=== PATIENT | male | born 1945 | race Caucasian/White ===

== ENCOUNTER 2018-09-22 22:26 | Inpatient (IN) | payer MEDICARE ==
[2018-09-22] MEDS ORDERED: Sodium Chloride 0.9% 10 ML Syringe FLUSH PRN (22:44)
--- NOTE | 2018-09-22 22:59 | EDM.PDOC ---
ED HPI GENERAL MEDICAL PROBLEM - General Chief Complaint: General Stated Complaint: ILLNESS Time Seen by Provider: 09/22/18 22:40 Source of Information: Reports: Patient, EMS, Old Records History Limitations: Reports: No Limitations - History of Present Illness INITIAL COMMENTS - FREE TEXT/NARRATIVE: 73 yo male injured his L elbow with a universal grinder tool 3 days ago. He was seen in the clinic today and was placed on cephalexin for a wound infection. Since noon today he has been running a low grade fever and has per family been a little confused at times. He has a hx of CVA and initially tonight they were thinking he had had another stroke so sent him into the ER via EMS. Claims he did not miss any of his medications today. 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) denies Pain Score (Numeric/FACES): 0 - Related Data Allergies Allergy/AdvReac Type Severity Reaction Status Date / Time No Known Allergies Allergy Verified 09/22/18 22:51 Home Meds: Home Meds Cephalexin [Keflex] 500 mg PO TID 09/22/18 [History] Losartan [Cozaar] 100 mg PO DAILY 09/22/18 [History] Tamsulosin HCl [Flomax] 0.4 mg PO DAILY 09/22/18 [History] ED ROS GENERAL - Review of Systems Review Of Systems: See Below Constitutional: Reports: Fever, Chills, Malaise, Weakness HEENT: Reports: No Symptoms Respiratory: Reports: No Symptoms Cardiovascular: Reports: No Symptoms Endocrine: Reports: No Symptoms GI/Abdominal: Reports: No Symptoms : Reports: No Symptoms Musculoskeletal: Reports: Arm Pain (R forearm and hand) Skin: Reports: Erythema (R hand and forearm.), Wound (deep abrasion of R hand) Neurological: Reports: Confusion (mild at times) Psychiatric: Reports: No Symptoms ED EXAM, GENERAL - Physical Exam Exam: See Below Exam Limited By: No Limitations General Appearance: Alert, WD/WN, No Apparent Distress Eye Exam: Bilateral Eye: Normal Inspection Ears: Normal External Exam, Normal Canal, Hearing Loss Ear Exam: Bilateral Ear: Auricle Normal, Canal Normal Nose: Normal Inspection, No Blood Throat/Mouth: Normal Inspection, Normal Lips, Normal Oropharynx, Normal Voice, No Airway Compromise Head: Atraumatic, Normocephalic Neck: Normal Inspection, Non-Tender Respiratory/Chest: No Respiratory Distress, Lungs Clear, Normal Breath Sounds, No Accessory Muscle Use Cardiovascular: Regular Rate, Rhythm, No Edema GI/Abdominal: Normal Bowel Sounds, Soft, Non-Tender, No Distention Back Exam: Normal Inspection. No: CVA Tenderness (R), CVA Tenderness (L) Extremities: Pedal Edema (R forearm and hand puffy), Limited Range of Motion (R wrist and hand with reduced ROM. ), Increased Warmth (R hand and forearm), Redness (R hand and forearm.) Neurological: Alert, Oriented, CN II-XII Intact, Normal Cognition, No Motor/ Sensory Deficits Psychiatric: Normal Affect, Normal Mood Skin Exam: Warm, Dry, No Rash, Erythema (R hand and forearm. ), Increased Warmth (R hand and forearm. ), Wound/Incision (deep abrasion dorsum of R hand.) Course - Vital Signs Text/Narrative:: Dr. Daniel called @ 2336h, Dr. Barbour called @ 2340h Last Recorded V/S: Last Vital Signs Temp 38.8 C H 09/22/18 22:28 Pulse 89 09/22/18 23:11 Resp 24 H 09/22/18 23:11 BP 186/124 H 09/22/18 23:30 Pulse Ox 96 09/22/18 22:28 - Orders/Labs/Meds Orders: Active Orders 24 hr Category Date Time Status Dietary Supplements [RC] BIDMEALS Care 09/22/18 23:12 Active CULTURE BLOOD [BC] Stat Lab 09/22/18 22:50 Received CULTURE BLOOD [BC] Stat Lab 09/22/18 22:55 Received Clindamycin Phosphate [Cleocin] 900 mg Med 09/22/18 23:12 Active Sodium Chloride 0.9% [Normal Saline] 100 ml IV ONETIME Sodium Chloride 0.9% [Normal Saline] 1,000 ml Med 09/22/18 23:13 Active IV .BOLUS Sodium Chloride 0.9% [Saline Flush] Med 09/22/18 22:44 Active 10 ml FLUSH ASDIRECTED PRN cefTRIAXone [Rocephin] 2 gm Med 09/22/18 23:11 Active Sodium Chloride 0.9% [Normal Saline] 50 ml IV ONETIME Saline Lock Insert [OM.PC] Routine Oth 09/22/18 22:44 Ordered Medication Orders Ceftriaxone Sodium 2 gm/ (Sodium Chloride) 50 mls @ 100 mls/hr IV ONETIME ONE Stop: 09/22/18 23:40 Last Admin: 09/22/18 23:33 Dose: 100 mls/hr Clindamycin Phosphate 900 mg/ (Sodium Chloride) 106 mls @ 200 mls/hr IV ONETIME ONE Stop: 09/22/18 23:43 Sodium Chloride (Normal Saline) 1,000 mls @ 1,000 mls/hr IV .BOLUS ONE Stop: 09/23/18 00:12 Last Admin: 09/22/18 23:31 Dose: 1,000 mls/hr Sodium Chloride (Saline Flush) 10 ml FLUSH ASDIRECTED PRN PRN Reason: Keep Vein Open Labs: Laboratory Tests 09/22/18 09/22/18 09/22/18 Range/Units 22:43 22:50 23:14 WBC 19.3 H (4.5-11.0) K/uL RBC 5.25 (4.30-5.90) M/uL Hgb 14.8 (12.0-15.0) g/dL Hct 44.1 (40.0-54.0) % MCV 84 (80-98) fL MCH 28 (27-31) pg MCHC 34 (32-36) % Plt Count 226 (150-400) K/uL Sodium 138 L (140-148) mmol/L Potassium 3.7 (3.6-5.2) mmol/L Chloride 102 (100-108) mmol/L Carbon Dioxide 26 (21-32) mmol/L Anion Gap 13.7 (5.0-14.0) mmol/L BUN 20 H (7-18) mg/dL Creatinine 1.5 H (0.8-1.3) mg/dL Est Cr Clr Drug Dosing 51.05 mL/min Estimated GFR (MDRD) 46 L (>60) Glucose 106 (74-106) mg/dL Calcium 9.0 (8.5-10.1) mg/dL C-Reactive Protein 3.24 H (0.0-0.3) mg/dL Urine Color Yellow Urine Appearance Clear Urine pH 7.0 (4.5-8.0) Ur Specific [place] 1.010 (1.008-1.030) Urine Protein 100 H (NEGATIVE) mg/dL Urine Glucose (UA) Normal (NEGATIVE) mg/dL Urine Ketones Negative (NEGATIVE) mg/dL Urine Occult Blood Moderate (NEGATIVE) Urine Nitrite Negative (NEGAITVE) Urine Bilirubin Negative (NEGATIVE) Urine Urobilinogen Normal (NORMAL) mg/dL Ur Leukocyte Esterase Negative (NEGATIVE) Urine RBC 5-10 H (0-5) Urine WBC 0-5 (0-5) Ur Epithelial Cells Rare Amorphous Sediment Not seen Urine Bacteria Not seen Urine Mucus Not seen Meds: Medications Generic Name Dose Route Start Last Admin Trade Name Freq PRN Reason Stop Dose Admin Ceftriaxone Sodium 2 gm/ 50 mls @ 100 mls/hr 09/22/18 23:11 09/22/18 23:33 Sodium Chloride IV 09/22/18 23:40 100 mls/hr ONETIME ONE Administration Clindamycin Phosphate 900 mg/ 106 mls @ 200 mls/hr 09/22/18 23:12 Sodium Chloride IV 09/22/18 23:43 ONETIME ONE Sodium Chloride 1,000 mls @ 1,000 mls/hr 09/22/18 23:13 09/22/18 23:31 Normal Saline IV 09/23/18 00:12 1,000 mls/hr .BOLUS ONE Administration Sodium Chloride 10 ml 09/22/18 22:44 Saline Flush FLUSH ASDIRECTED PRN Keep Vein Open Discontinued Medications Generic Name Dose Route Start Last Admin Trade Name Freq PRN Reason Stop Dose Admin Clonidine HCl 0.1 mg 09/22/18 23:11 09/22/18 23:30 Catapres PO 09/22/18 23:12 0.1 mg ONETIME ONE Administration Departure - Departure Time of Disposition: 00:00 Disposition: Admitted As Inpatient 68 Condition: Fair Clinical Impression: Cellulitis of forearm, right, HTN, goal below 140/80 Hand abrasion, infected Qualifiers: Encounter type: initial encounter Laterality: right Qualified Code(s): S60.511A - Abrasion of right hand, initial encounter; L08.9 - Local infection of the skin and subcutaneous tissue, unspecified - Discharge Information *PRESCRIPTION DRUG MONITORING PROGRAM REVIEWED*: Not Applicable *COPY OF PRESCRIPTION DRUG MONITORING REPORT IN PATIENT FARHAN: Not Applicable Referrals: Brandan Mata NP [Primary Care Provider] - Forms: ED Department Discharge - My Orders Last 24 Hours: My Active Orders 09/22/18 22:44 Sodium Chloride 0.9% [Saline Flush] 10 ml FLUSH ASDIRECTED PRN Saline Lock Insert [OM.PC] Routine 09/22/18 22:50 CULTURE BLOOD [BC] Stat 09/22/18 22:55 CULTURE BLOOD [BC] Stat 09/22/18 23:11 cefTRIAXone [Rocephin] 2 gm Sodium Chloride 0.9% [Normal Saline] 50 ml IV ONETIME 09/22/18 23:12 Dietary Supplements [RC] BIDMEALS Clindamycin Phosphate [Cleocin] 900 mg Sodium Chloride 0.9% [Normal Saline] 100 ml IV ONETIME 09/22/18 23:13 Sodium Chloride 0.9% [Normal Saline] 1,000 ml IV .BOLUS - Assessment/Plan Last 24 Hours: My Active Orders 09/22/18 22:44 Sodium Chloride 0.9% [Saline Flush] 10 ml FLUSH ASDIRECTED PRN Saline Lock Insert [OM.PC] Routine 09/22/18 22:50 CULTURE BLOOD [BC] Stat 09/22/18 22:55 CULTURE BLOOD [BC] Stat 09/22/18 23:11 cefTRIAXone [Rocephin] 2 gm Sodium Chloride 0.9% [Normal Saline] 50 ml IV ONETIME 09/22/18 23:12 Dietary Supplements [RC] BIDMEALS Clindamycin Phosphate [Cleocin] 900 mg Sodium Chloride 0.9% [Normal Saline] 100 ml IV ONETIME 09/22/18 23:13 Sodium Chloride 0.9% [Normal Saline] 1,000 ml IV .BOLUS
[2018-09-22] MEDS ORDERED: cloNIDine 0.1 MG Tab PO ONE (23:11)
[2018-09-22] MEDS ORDERED: cefTRIAXone 2 GM in Sodium Chloride 0.9% 50 ML IV ONE (23:11)
[2018-09-22] MEDS ORDERED: Clindamycin Phosphate 900 MG in Sodium Chloride 0.9% 100 ML IV ONE (23:12)
[2018-09-22] MEDS ORDERED: Sodium Chloride 0.9% 1,000 ML IV ONE (23:13)
[2018-09-22] MEDS ORDERED: Acetaminophen 500 MG Tab PO ONE (23:58)
[2018-09-23] MEDS ORDERED: Acetaminophen/oxyCODONE 325-5 MG Tab PO PRN (00:19)
[2018-09-23] MEDS ORDERED: Ondansetron 4 MG Tab.DIS PO PRN (00:19)
--- NOTE | 2018-09-23 00:19 | PCM.HP ---
H&P History of Present Illness - General Date of Service: 09/23/18 Source of Information: Patient, EMS History Limitations: Reports: Altered Mental Status - History of Present Illness Initial Comments - Free Text/Narative: 73-year-old male with past medical history of CVA, CKD, hypertension on losartan medication came to the ED with a complaining of redness of anterior surface of the right upper extremity. Patient evaluated in the clinic and diagnosed with cellulitis and started him on cephalexin medication in the morning. Patient came to the ED with a complaining of altered mental status associated with pain at the cellulitis area. Patient reports that he had injury with jewel bearing grinder blade 4 days prior to the ER visit. Patient has intermittent fever maximum fever maximum was 102 at home. The patient blood pressure medication increased from losartan 50g to 100 mg today. Patient denies any chest pain, exertional chest pain, breathing difficulty, headaches, dizziness, lightheadedness, disturbance in bowel and bladder habits. Patient is a full code In the ED patient received 1 dose of clindamycin and received 1 L of IV fluids. Patient WBC count increased from 12-19 with lactic acid levels are 1.1. Patient blood pressures are elevated. Other review of systems are not significant denies Pain Score (Numeric/FACES): 0 - Related Data Allergies/Adverse Reactions: Allergies Allergy/AdvReac Type Severity Reaction Status Date / Time No Known Allergies Allergy Verified 09/22/18 22:51 Home Medications: Home Meds Cephalexin [Keflex] 500 mg PO TID 09/22/18 [History] Losartan [Cozaar] 100 mg PO DAILY 09/22/18 [History] Tamsulosin HCl [Flomax] 0.4 mg PO DAILY 09/22/18 [History] Past Medical History Cardiovascular History: Reports: Hypertension Genitourinary History: Reports: Renal Disease Neurological History: Reports: CVA - Infectious Disease History Infectious Disease History: Reports: Chicken Pox, Measles, Mumps, Other (See Below) Other Infectious Disease History: polio Social & Family History - Family History Family Medical History: Noncontributory - Tobacco Use Smoking Status *Q: Never Smoker Second Hand Smoke Exposure: No - Caffeine Use Caffeine Use: Reports: Coffee, Tea - Alcohol Use Days Per Week of Alcohol Use: 0 - Recreational Drug Use Recreational Drug Use: No H&P Review of Systems - Review of Systems: Review Of Systems: See Below General: Reports: Fever, Chills, Malaise, Weakness, Fatigue, Night Sweats, Decreased Appetite. Denies: Weight Loss, Weight Gain Pulmonary: Denies: Shortness of Breath, Wheezing, Pleuritic Chest Pain, Cough, Sputum, Hemoptysis Cardiovascular: Denies: Chest Pain, Palpitations, Dyspnea on Exertion, Orthopnea , PND, Edema, Lightheadedness Gastrointestinal: Reports: Nausea. Denies: Abdominal Pain, Decreased Appetite, Vomiting Genitourinary: Denies: Dysuria, Frequency, Burning, Pain, Urgency Musculoskeletal: Denies: Neck Pain, Shoulder Pain, Arm Pain Skin: Denies: Cyanosis, Jaundice Psychiatric: Reports: Confusion, Agitation. Denies: Depression, Mood Lability, Anxiety, Hallucinations, Suicidal Ideation Neurological: Reports: Confusion. Denies: Dizziness, Headache, Numbness, Paresthesia Hematologic/Lymphatic: Denies: Anemia, Easy Bleeding Exam - Exam Exam: See Below - Vital Signs Vital Signs: Last Vital Signs Temp 38.4 C H 09/23/18 00:11 Pulse 73 09/23/18 00:11 Resp 16 09/23/18 00:11 BP 177/108 H 09/23/18 00:11 Pulse Ox 94 L 09/23/18 00:11 Weight: 91.626 kg - Exam General: Alert, Oriented, Mild Distress Neck: Supple, Trachea Midline Lungs: Clear to Auscultation, Normal Respiratory Effort Cardiovascular: Regular Rate, Regular Rhythm, Normal S1, Normal S2 GI/Abdominal Exam: Normal Bowel Sounds, Soft, Non-Tender, No Organomegaly Back Exam: Normal Inspection, Full Range of Motion Extremities: Leg Pain, Increased Warmth, Redness (at ant surface of right upper extremity) Skin: Warm, Dry, Intact, Rash, Wound Neuro Extensive - Mental Status: Alert. No: Oriented x3 - Patient Data Lab Results Last 24 hrs: Laboratory Results - last 24 hr 09/22/18 09/22/18 09/22/18 Range/Units 22:43 22:50 23:14 WBC 19.3 H (4.5-11.0) K/uL RBC 5.25 (4.30-5.90) M/uL Hgb 14.8 (12.0-15.0) g/dL Hct 44.1 (40.0-54.0) % MCV 84 (80-98) fL MCH 28 (27-31) pg MCHC 34 (32-36) % Plt Count 226 (150-400) K/uL Sodium 138 L (140-148) mmol/L Potassium 3.7 (3.6-5.2) mmol/L Chloride 102 (100-108) mmol/L Carbon Dioxide 26 (21-32) mmol/L Anion Gap 13.7 (5.0-14.0) mmol/L BUN 20 H (7-18) mg/dL Creatinine 1.5 H (0.8-1.3) mg/dL Est Cr Clr Drug Dosing 51.05 mL/min Estimated GFR (MDRD) 46 L (>60) Glucose 106 (74-106) mg/dL Calcium 9.0 (8.5-10.1) mg/dL C-Reactive Protein 3.24 H (0.0-0.3) mg/dL Urine Color Yellow Urine Appearance Clear Urine pH 7.0 (4.5-8.0) Ur Specific [place] 1.010 (1.008-1.030) Urine Protein 100 H (NEGATIVE) mg/dL Urine Glucose (UA) Normal (NEGATIVE) mg/dL Urine Ketones Negative (NEGATIVE) mg/dL Urine Occult Blood Moderate (NEGATIVE) Urine Nitrite Negative (NEGAITVE) Urine Bilirubin Negative (NEGATIVE) Urine Urobilinogen Normal (NORMAL) mg/dL Ur Leukocyte Esterase Negative (NEGATIVE) Urine RBC 5-10 H (0-5) Urine WBC 0-5 (0-5) Ur Epithelial Cells Rare Amorphous Sediment Not seen Urine Bacteria Not seen Urine Mucus Not seen Result Diagrams: 09/25/18 06:00 09/25/18 06:01 - Problem List (1) CVA (cerebral vascular accident) SNOMED Code(s): 243018080 ICD Code: I63.9 - CEREBRAL INFARCTION, UNSPECIFIED Status: Acute Current Visit: Yes (2) CKD (chronic kidney disease) stage 3, GFR 30-59 ml/min SNOMED Code(s): 958375264 ICD Code: N18.3 - CHRONIC KIDNEY DISEASE, STAGE 3 (MODERATE) Status: Acute Current Visit: Yes (3) Cellulitis of forearm, right SNOMED Code(s): 90247715 ICD Code: L03.113 - CELLULITIS OF RIGHT UPPER LIMB Status: Acute Current Visit: Yes (4) HTN, goal below 140/80 SNOMED Code(s): 59375581 ICD Code: I10 - ESSENTIAL (PRIMARY) HYPERTENSION Status: Acute Current Visit: Yes (5) Hand abrasion, infected SNOMED Code(s): 891095442 ICD Code: S60.519A - ABRASION OF UNSPECIFIED HAND, INITIAL ENCOUNTER; L08.9 - LOCAL INFECTION OF THE SKIN AND SUBCUTANEOUS TISSUE, UNSP Status: Acute Current Visit: Yes Qualifiers: Encounter type: initial encounter Laterality: right Qualified Code(s): S60.511A - Abrasion of right hand, initial encounter; L08.9 - Local infection of the skin and subcutaneous tissue, unspecified Problem List Initiated/Reviewed/Updated: Yes Orders Last 24hrs: Active Orders 24 hr Category Date Time Status Dietary Supplements [RC] BIDMEALS Care 09/22/18 23:12 Active CULTURE BLOOD [BC] Stat Lab 09/22/18 22:50 Received CULTURE BLOOD [BC] Stat Lab 09/22/18 22:55 Received Sodium Chloride 0.9% [Saline Flush] Med 09/22/18 22:44 Active 10 ml FLUSH ASDIRECTED PRN Saline Lock Insert [OM.PC] Routine Oth 09/22/18 22:44 Ordered Medication Orders Sodium Chloride (Saline Flush) 10 ml FLUSH ASDIRECTED PRN PRN Reason: Keep Vein Open Assessment/Plan Comment:: 73-year-old male with past medical history of CVA, CKD hypertension came to the ED with a complaining of redness of his anterior surface of the right upper extremity and diagnosed with cellulitis and admitted to the hospital in observation status Patient WBC count increased from 12-19 We will start him on broad-spectrum antibiotics vancomycin, Zosyn Patient creatinine levels are 1.5 Patient has previous history of CKD stage III We will give another 1 L of bolus We will start him on maintenance IV fluids 150 mL/h CK levels are elevated, will follow the trend CBC, CMP tomorrow We will follow blood culture reports and change antibiotics accordingly We will continue losartan 100 mg daily for hypertension DVT prophylaxis heparin 5000 international units every 8 hourly IV fluids 150 mL/h CODE STATUS full code Diet low-salt diet Riddle catheter not indicated Observation status
[2018-09-23] MEDS ORDERED: Sodium Chloride 0.9% 1,000 ML IV ONE (00:23)
[2018-09-23] MEDS ORDERED: Heparin Sodium 5,000 Units/ML Vial SUBCUT SCH (00:30)
[2018-09-23] MEDS ORDERED: Sodium Chloride 0.9% 1,000 ML IV SCH ×2 (00:30→10:45)
[2018-09-23] MEDS: Piperacillin/Tazobactam 3.375 GM in Sodium Chloride 0.9% 50 ML IV SCH ×2 (02:01→06:24)
[2018-09-23] MEDS: Acetaminophen 325 MG Tab PO PRN (07:21)
[2018-09-23] MEDS: Heparin Sodium 5,000 Units/ML Vial SUBCUT SCH ×2 (09:17→18:29)
--- NOTE | 2018-09-23 10:45 | PCM.PN ---
- General Info Date of Service: 09/23/18 Subjective Update: there were no acute events overnight following admission. No significant pain in the right arm. He thinks the redness and swelling is about the same as last night. The redness has not extended beyond the area that is outlined on the hand or arm. Low-grade fevers overnight. Confusion seems to have resolved. Blood pressure moderately elevated this morning. Functional Status: Reports: Pain Controlled, Tolerating Diet - Review of Systems General: Reports: Fever - Patient Data Vitals - Most Recent: Last Vital Signs Temp 37.2 C 09/23/18 07:22 Pulse 63 09/23/18 07:22 Resp 16 09/23/18 07:22 BP 169/88 H 09/23/18 07:22 Pulse Ox 95 09/23/18 07:22 Weight - Most Recent: 89.176 kg I&O - Last 24 Hours: Intake & Output 09/22/18 09/23/18 09/23/18 22:59 06:59 14:59 Intake Total 1351 Output Total 300 Balance 1051 Lab Results Last 24 Hours: Laboratory Results - last 24 hr 09/22/18 09/22/18 09/22/18 Range/Units 22:43 22:50 23:14 WBC 19.3 H (4.5-11.0) K/uL RBC 5.25 (4.30-5.90) M/uL Hgb 14.8 (12.0-15.0) g/dL Hct 44.1 (40.0-54.0) % MCV 84 (80-98) fL MCH 28 (27-31) pg MCHC 34 (32-36) % Plt Count 226 (150-400) K/uL Neut % (Auto) (36-66) % Lymph % (Auto) (24-44) % [place] % (Auto) (2-6) % Eos % (Auto) (2-4) % Baso % (Auto) (0-1) % Sodium 138 L (140-148) mmol/L Potassium 3.7 (3.6-5.2) mmol/L Chloride 102 (100-108) mmol/L Carbon Dioxide 26 (21-32) mmol/L Anion Gap 13.7 (5.0-14.0) mmol/L BUN 20 H (7-18) mg/dL Creatinine 1.5 H (0.8-1.3) mg/dL Est Cr Clr Drug Dosing 51.05 mL/min Estimated GFR (MDRD) 46 L (>60) Glucose 106 (74-106) mg/dL Lactic Acid (0.4-2.0) mmol/L Calcium 9.0 (8.5-10.1) mg/dL Creatine Kinase (39-308) U/L C-Reactive Protein 3.24 H (0.0-0.3) mg/dL Urine Color Yellow Urine Appearance Clear Urine pH 7.0 (4.5-8.0) Ur Specific [place] 1.010 (1.008-1.030) Urine Protein 100 H (NEGATIVE) mg/dL Urine Glucose (UA) Normal (NEGATIVE) mg/dL Urine Ketones Negative (NEGATIVE) mg/dL Urine Occult Blood Moderate (NEGATIVE) Urine Nitrite Negative (NEGAITVE) Urine Bilirubin Negative (NEGATIVE) Urine Urobilinogen Normal (NORMAL) mg/dL Ur Leukocyte Esterase Negative (NEGATIVE) Urine RBC 5-10 H (0-5) Urine WBC 0-5 (0-5) Ur Epithelial Cells Rare Amorphous Sediment Not seen Urine Bacteria Not seen Urine Mucus Not seen 09/23/18 09/23/18 09/23/18 Range/Units 00:25 00:44 05:29 WBC 18.9 H (4.5-11.0) K/uL RBC 4.50 (4.30-5.90) M/uL Hgb 13.1 (12.0-15.0) g/dL Hct 38.4 L (40.0-54.0) % MCV 85 (80-98) fL MCH 29 (27-31) pg MCHC 34 (32-36) % Plt Count 201 (150-400) K/uL Neut % (Auto) 82 H (36-66) % Lymph % (Auto) 8 L (24-44) % [place] % (Auto) 11 H (2-6) % Eos % (Auto) 0 L (2-4) % Baso % (Auto) 0 (0-1) % Sodium (140-148) mmol/L Potassium (3.6-5.2) mmol/L Chloride (100-108) mmol/L Carbon Dioxide (21-32) mmol/L Anion Gap (5.0-14.0) mmol/L BUN (7-18) mg/dL Creatinine (0.8-1.3) mg/dL Est Cr Clr Drug Dosing mL/min Estimated GFR (MDRD) (>60) Glucose (74-106) mg/dL Lactic Acid 1.0 (0.4-2.0) mmol/L Calcium (8.5-10.1) mg/dL Creatine Kinase 375 H (39-308) U/L C-Reactive Protein (0.0-0.3) mg/dL Urine Color Urine Appearance Urine pH (4.5-8.0) Ur Specific [place] (1.008-1.030) Urine Protein (NEGATIVE) mg/dL Urine Glucose (UA) (NEGATIVE) mg/dL Urine Ketones (NEGATIVE) mg/dL Urine Occult Blood (NEGATIVE) Urine Nitrite (NEGAITVE) Urine Bilirubin (NEGATIVE) Urine Urobilinogen (NORMAL) mg/dL Ur Leukocyte Esterase (NEGATIVE) Urine RBC (0-5) Urine WBC (0-5) Ur Epithelial Cells Amorphous Sediment Urine Bacteria Urine Mucus 09/23/18 Range/Units 05:29 WBC (4.5-11.0) K/uL RBC (4.30-5.90) M/uL Hgb (12.0-15.0) g/dL Hct (40.0-54.0) % MCV (80-98) fL MCH (27-31) pg MCHC (32-36) % Plt Count (150-400) K/uL Neut % (Auto) (36-66) % Lymph % (Auto) (24-44) % [place] % (Auto) (2-6) % Eos % (Auto) (2-4) % Baso % (Auto) (0-1) % Sodium 139 L (140-148) mmol/L Potassium 3.6 (3.6-5.2) mmol/L Chloride 106 (100-108) mmol/L Carbon Dioxide 24 (21-32) mmol/L Anion Gap 12.6 (5.0-14.0) mmol/L BUN 18 (7-18) mg/dL Creatinine 1.4 H (0.8-1.3) mg/dL Est Cr Clr Drug Dosing 56.27 mL/min Estimated GFR (MDRD) 50 L (>60) Glucose 113 H (74-106) mg/dL Lactic Acid (0.4-2.0) mmol/L Calcium 8.1 L (8.5-10.1) mg/dL Creatine Kinase (39-308) U/L C-Reactive Protein (0.0-0.3) mg/dL Urine Color Urine Appearance Urine pH (4.5-8.0) Ur Specific [place] (1.008-1.030) Urine Protein (NEGATIVE) mg/dL Urine Glucose (UA) (NEGATIVE) mg/dL Urine Ketones (NEGATIVE) mg/dL Urine Occult Blood (NEGATIVE) Urine Nitrite (NEGAITVE) Urine Bilirubin (NEGATIVE) Urine Urobilinogen (NORMAL) mg/dL Ur Leukocyte Esterase (NEGATIVE) Urine RBC (0-5) Urine WBC (0-5) Ur Epithelial Cells Amorphous Sediment Urine Bacteria Urine Mucus Med Orders - Current: Current Medications Acetaminophen (Tylenol) 650 mg PO Q4H PRN PRN Reason: Pain (Mild 1-3)/fever Last Admin: 09/23/18 07:21 Dose: 650 mg Heparin Sodium (Porcine) (Heparin Sodium) 5,000 units SUBCUT Q8H [facility] Last Admin: 09/23/18 09:17 Dose: 5,000 units Piperacillin/Tazobactam/ (Dextrose 3.375 gm/ Premix) 50 mls @ 100 mls/hr IV Q6H [facility] Vancomycin HCl 1.5 gm/ Sodium (Chloride) 250 mls @ 166.667 mls/hr IV Q12H [facility] Sodium Chloride (Normal Saline) 1,000 mls @ 50 mls/hr IV ASDIRECTED [facility] Losartan Potassium (Cozaar) 100 mg PO DAILY [facility] Ondansetron HCl (Zofran Odt) 4 mg PO Q6H PRN PRN Reason: Nausea able to take PO Oxycodone/Acetaminophen (Percocet 325-5 Mg) 1 tab PO Q4H PRN PRN Reason: Pain (moderate 4-6) Potassium Chloride (Klor-Con M20) 40 meq PO ONETIME ONE Stop: 09/23/18 10:37 Senna/Docusate Sodium (Senna Plus) 1 tab PO BID PRN PRN Reason: Constipation Sodium Chloride (Saline Flush) 10 ml FLUSH ASDIRECTED PRN PRN Reason: Keep Vein Open Tamsulosin HCl (Flomax) 0.4 mg PO DAILY [facility] Discontinued Medications Acetaminophen (Tylenol Extra Strength) 1,000 mg PO ONETIME ONE Stop: 09/22/18 23:59 Last Admin: 09/23/18 00:08 Dose: 1,000 mg Clonidine HCl (Catapres) 0.1 mg PO ONETIME ONE Stop: 09/22/18 23:12 Last Admin: 09/22/18 23:30 Dose: 0.1 mg Heparin Sodium (Porcine) (Heparin Sodium) 5,000 units SUBCUT Q8H [facility] Last Admin: 09/23/18 02:00 Dose: 5,000 units Ceftriaxone Sodium 2 gm/ (Sodium Chloride) 50 mls @ 100 mls/hr IV ONETIME ONE Stop: 09/22/18 23:40 Last Admin: 09/22/18 23:33 Dose: 100 mls/hr Clindamycin Phosphate 900 mg/ (Sodium Chloride) 106 mls @ 200 mls/hr IV ONETIME ONE Stop: 09/22/18 23:43 Last Admin: 09/23/18 00:16 Dose: 200 mls/hr Sodium Chloride (Normal Saline) 1,000 mls @ 1,000 mls/hr IV .BOLUS ONE Stop: 09/23/18 00:12 Last Admin: 09/22/18 23:31 Dose: 1,000 mls/hr Sodium Chloride (Normal Saline) 1,000 mls @ 999 mls/hr IV .BOLUS ONE Stop: 09/23/18 01:23 Last Admin: 09/23/18 00:34 Dose: 999 mls/hr Piperacillin Sod/Tazobactam (Sod 3.375 gm/ Sodium Chloride) 50 mls @ 100 mls/ hr IV Q6H [facility] Last Admin: 09/23/18 06:24 Dose: 100 mls/hr Sodium Chloride (Normal Saline) 1,000 mls @ 150 mls/hr IV ASDIRECTED [facility] Last Admin: 09/23/18 02:04 Dose: 150 mls/hr Vancomycin HCl 1 gm/ Sodium (Chloride) 250 mls @ 150 mls/hr IV Q12H [facility] Vancomycin HCl 1.5 gm/ Sodium (Chloride) 250 mls @ 150 mls/hr IV Q12H [facility] Vancomycin HCl 1.5 gm/ Sodium (Chloride) 250 mls @ 166.667 mls/hr IV Q12H [facility] Vancomycin HCl 1.5 gm/ Sodium (Chloride) 250 mls @ 166.667 mls/hr IV Q24H [facility] Last Admin: 09/23/18 03:00 Dose: 166.667 mls/hr - Exam Quality Assessment: No: Supplemental Oxygen General: Alert, Oriented, Cooperative, No Acute Distress Lungs: Normal Respiratory Effort GI/Abdominal Exam: Soft, No Distention Extremities: Other (right forearm with redness and swelling over the dorsum of the hand as well as some redness on the distal forearm. Redness is contained within the marked area. Over the ulnar styloid there is a 0.5 x 2 cm laceration with no active bleeding. No purulence. No abscess.) Psy/Mental Status: Alert, Normal Affect - Problem List & Annotations (1) Cellulitis of forearm, right SNOMED Code(s): 88384483 Code(s): L03.113 - CELLULITIS OF RIGHT UPPER LIMB Status: Acute Current Visit: Yes (2) HTN, goal below 140/80 SNOMED Code(s): 83742111 Code(s): I10 - ESSENTIAL (PRIMARY) HYPERTENSION Status: Acute Current Visit: Yes - Problem List Review Problem List Initiated/Reviewed/Updated: Yes - My Orders Last 24 Hours: My Active Orders 09/23/18 10:15 Losartan [Cozaar] 100 mg PO DAILY Tamsulosin [Flomax] 0.4 mg PO DAILY 09/23/18 10:36 Potassium Chloride [Klor-Con M20] 40 meq PO ONETIME ONE 09/23/18 10:38 Discontinue Telemetry Monitoring [Cardiac Monitoring Discontinue] [RC] Click to Edit Up With Assistance [RC] ASDIRECTED 09/23/18 10:45 Sodium Chloride 0.9% [Normal Saline] 1,000 ml IV ASDIRECTED 09/24/18 05:00 BASIC METABOLIC PANEL,BMP [CHEM] Timed CBC W/O DIFF,HEMOGRAM [HEME] Timed (1) - Plan Plan:: ASSESSMENT AND PLAN - cellulitis of the right forearm and hand - no evidence for abscess based on examination today. Low-grade fevers overnight. White blood cell count stable. No significant pain. Cultures pending. Tolerating current antibiotics. no evidence for sepsis. -Cont vancomycin and Pip/Tazo -Pain control if needed -Follow-up cultures -Daily dressing change Essential hypertension - moderate elevation of blood pressure but he has not had his home medication as of yet. 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 Maintenance issues - - DVT prophylaxis - mechanical - GI prophylaxis - not indicated - Nutrition - regular - Riddle catheter - not indicated Disposition - I would anticipate discharge home after the hospital stay. Skyler Daniel M.D.
[2018-09-23] MEDS ORDERED: Potassium Chloride 20 MEQ Tab.ER PO ONE (11:00)
[2018-09-23] MEDS: Losartan 50 MG Tab PO SCH (11:06)
[2018-09-23] MEDS: Tamsulosin 0.4 MG Cap.ER PO SCH (11:07)
[2018-09-23] MEDS: Piperacillin/Tazobactam/Dext 3.375 GM in Premix Bag 1 BAG IV SCH ×3 (12:06→23:54)
[2018-09-24] MEDS: Heparin Sodium 5,000 Units/ML Vial SUBCUT SCH ×3 (02:43→17:44)
[2018-09-24] MEDS: Piperacillin/Tazobactam/Dext 3.375 GM in Premix Bag 1 BAG IV SCH ×2 (05:23→10:59)
[2018-09-24] MEDS: Losartan 50 MG Tab PO SCH (08:54)
[2018-09-24] MEDS: Tamsulosin 0.4 MG Cap.ER PO SCH (08:55)
[2018-09-24] MEDS ORDERED: Potassium Chloride 20 MEQ Tab.ER PO ONE (10:00)
--- NOTE | 2018-09-24 12:40 | PCM.PN ---
- General Info Date of Service: 09/24/18 Subjective Update: There were no acute events overnight. Confusion has resolved. No fevers overnight. He does not have any pain in the arm but also notes he does not have much sensation in that right arm. Still has some mild serosanguineous type drainage from the injury. In some aspects the arm looks better but the injury itself looks a little more swollen and erythematous today. He does have a blood culture which is growing gram-positive cocci with identification still pending. Functional Status: Reports: Pain Controlled, Tolerating Diet - Review of Systems General: Reports: Fever Musculoskeletal: Reports: Arm Pain - Patient Data Vitals - Most Recent: Last Vital Signs Temp 36.5 C 09/24/18 11:12 Pulse 89 09/24/18 11:12 Resp 18 09/24/18 11:12 BP 160/95 H 09/24/18 11:12 Pulse Ox 97 09/24/18 11:12 Weight - Most Recent: 88.451 kg I&O - Last 24 Hours: Intake & Output 09/23/18 09/24/18 09/24/18 22:59 06:59 14:59 Intake Total 680 350 Output Total 350 Balance 680 350 -350 Lab Results Last 24 Hours: Laboratory Results - last 24 hr 09/24/18 09/24/18 Range/Units 05:38 05:38 WBC 15.1 H (4.5-11.0) K/uL RBC 4.71 (4.30-5.90) M/uL Hgb 13.4 (12.0-15.0) g/dL Hct 40.2 (40.0-54.0) % MCV 85 (80-98) fL MCH 29 (27-31) pg MCHC 33 (32-36) % Plt Count 215 (150-400) K/uL Sodium 138 L (140-148) mmol/L Potassium 3.5 L (3.6-5.2) mmol/L Chloride 105 (100-108) mmol/L Carbon Dioxide 24 (21-32) mmol/L Anion Gap 12.5 (5.0-14.0) mmol/L BUN 17 (7-18) mg/dL Creatinine 1.5 H (0.8-1.3) mg/dL Est Cr Clr Drug Dosing 52.52 mL/min Estimated GFR (MDRD) 46 L (>60) Glucose 93 (74-106) mg/dL Calcium 8.5 (8.5-10.1) mg/dL Kirt Results Last 24 Hours: Microbiology 09/22/18 22:50 Aerobic Blood Culture - Preliminary Blood - Arm, Left NO GROWTH AFTER 1 DAY Anaerobic Blood Culture - Preliminary 09/22/18 22:55 Aerobic Blood Culture - Preliminary Blood - Venous NO GROWTH AFTER 1 DAY Anaerobic Blood Culture - Preliminary NO GROWTH AFTER 1 DAY Med Orders - Current: Current Medications Acetaminophen (Tylenol) 650 mg PO Q4H PRN PRN Reason: Pain (Mild 1-3)/fever Last Admin: 09/23/18 07:21 Dose: 650 mg Heparin Sodium (Porcine) (Heparin Sodium) 5,000 units SUBCUT Q8H [facility] Last Admin: 09/24/18 08:59 Dose: 5,000 units Vancomycin HCl 1.5 gm/ Sodium (Chloride) 250 mls @ 166.667 mls/hr IV Q12H [facility] Last Admin: 09/24/18 02:46 Dose: 166.667 mls/hr Clindamycin Phosphate 600 mg/ (Sodium Chloride) 54 mls @ 100 mls/hr IV Q8H [facility] Sodium Chloride (Normal Saline) 1,000 mls @ 25 mls/hr IV ASDIRECTED [facility] Losartan Potassium (Cozaar) 100 mg PO DAILY [facility] Last Admin: 09/24/18 08:54 Dose: 100 mg Ondansetron HCl (Zofran Odt) 4 mg PO Q6H PRN PRN Reason: Nausea able to take PO Oxycodone/Acetaminophen (Percocet 325-5 Mg) 1 tab PO Q4H PRN PRN Reason: Pain (moderate 4-6) Senna/Docusate Sodium (Senna Plus) 1 tab PO BID PRN PRN Reason: Constipation Sodium Chloride (Saline Flush) 10 ml FLUSH ASDIRECTED PRN PRN Reason: Keep Vein Open Tamsulosin HCl (Flomax) 0.4 mg PO DAILY [facility] Last Admin: 09/24/18 08:55 Dose: 0.4 mg Discontinued Medications Acetaminophen (Tylenol Extra Strength) 1,000 mg PO ONETIME ONE Stop: 09/22/18 23:59 Last Admin: 09/23/18 00:08 Dose: 1,000 mg Clonidine HCl (Catapres) 0.1 mg PO ONETIME ONE Stop: 09/22/18 23:12 Last Admin: 09/22/18 23:30 Dose: 0.1 mg Heparin Sodium (Porcine) (Heparin Sodium) 5,000 units SUBCUT Q8H [facility] Last Admin: 09/23/18 02:00 Dose: 5,000 units Ceftriaxone Sodium 2 gm/ (Sodium Chloride) 50 mls @ 100 mls/hr IV ONETIME ONE Stop: 09/22/18 23:40 Last Admin: 09/22/18 23:33 Dose: 100 mls/hr Clindamycin Phosphate 900 mg/ (Sodium Chloride) 106 mls @ 200 mls/hr IV ONETIME ONE Stop: 09/22/18 23:43 Last Admin: 09/23/18 00:16 Dose: 200 mls/hr Sodium Chloride (Normal Saline) 1,000 mls @ 1,000 mls/hr IV .BOLUS ONE Stop: 09/23/18 00:12 Last Admin: 09/22/18 23:31 Dose: 1,000 mls/hr Sodium Chloride (Normal Saline) 1,000 mls @ 999 mls/hr IV .BOLUS ONE Stop: 09/23/18 01:23 Last Admin: 09/23/18 00:34 Dose: 999 mls/hr Piperacillin Sod/Tazobactam (Sod 3.375 gm/ Sodium Chloride) 50 mls @ 100 mls/ hr IV Q6H [facility] Last Admin: 09/23/18 06:24 Dose: 100 mls/hr Sodium Chloride (Normal Saline) 1,000 mls @ 150 mls/hr IV ASDIRECTED [facility] Last Admin: 09/23/18 02:04 Dose: 150 mls/hr Vancomycin HCl 1 gm/ Sodium (Chloride) 250 mls @ 150 mls/hr IV Q12H [facility] Vancomycin HCl 1.5 gm/ Sodium (Chloride) 250 mls @ 150 mls/hr IV Q12H [facility] Vancomycin HCl 1.5 gm/ Sodium (Chloride) 250 mls @ 166.667 mls/hr IV Q12H [facility] Vancomycin HCl 1.5 gm/ Sodium (Chloride) 250 mls @ 166.667 mls/hr IV Q24H [facility] Last Admin: 09/23/18 03:00 Dose: 166.667 mls/hr Piperacillin/Tazobactam/ (Dextrose 3.375 gm/ Premix) 50 mls @ 100 mls/hr IV Q6H [facility] Last Admin: 09/24/18 10:59 Dose: 100 mls/hr Sodium Chloride (Normal Saline) 1,000 mls @ 50 mls/hr IV ASDIRECTED [facility] Last Admin: 09/23/18 11:08 Dose: 50 mls/hr Potassium Chloride (Klor-Con M20) 40 meq PO ONETIME ONE Stop: 09/23/18 11:01 Last Admin: 09/23/18 11:07 Dose: 40 meq Potassium Chloride (Klor-Con M20) 40 meq PO ONETIME ONE Stop: 09/24/18 10:01 Last Admin: 09/24/18 10:02 Dose: 40 meq - Exam Quality Assessment: No: Supplemental Oxygen General: Alert, Oriented, Cooperative, No Acute Distress Lungs: Normal Respiratory Effort GI/Abdominal Exam: Soft, No Distention Extremities: Other (0.5x3 cm laceration right dorsal forearm with mild SS drainage. There is surrounding erythema and induration but no fluctuance. The area of erythema over the dorsum of the hand has improved. He does have some increase in the erythema and warmth on the palmar side of the forearm compared to yesterday.) - Problem List & Annotations (1) Cellulitis of forearm, right SNOMED Code(s): 00279070 Code(s): L03.113 - CELLULITIS OF RIGHT UPPER LIMB Status: Acute Current Visit: Yes (2) HTN, goal below 140/80 SNOMED Code(s): 42945129 Code(s): I10 - ESSENTIAL (PRIMARY) HYPERTENSION Status: Acute Current Visit: Yes - Problem List Review Problem List Initiated/Reviewed/Updated: Yes - My Orders Last 24 Hours: My Active Orders 09/24/18 12:45 Clindamycin Phosphate [Cleocin] 600 mg Sodium Chloride 0.9% [Normal Saline] 50 ml IV Q8H Sodium Chloride 0.9% [Normal Saline] 1,000 ml IV ASDIRECTED 09/25/18 05:00 BASIC METABOLIC PANEL,BMP [CHEM] Timed CBC W/O DIFF,HEMOGRAM [HEME] Timed (1) - Plan Plan:: ASSESSMENT AND PLAN - Cellulitis of the right forearm and hand - no evidence for abscess based on examination again today. White blood cell count is trending down. Temperature curve improving. Confusion has resolved. Blood culture growing gram-positive cocci -Cont vancomycin -Stop Pip/Tazo -Start clindamycin -Follow-up cultures -Pain control if needed -Follow-up cultures -Daily dressing change Essential hypertension - moderate elevation of blood pressure so far today. 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 Maintenance issues - - DVT prophylaxis - mechanical - GI prophylaxis - not indicated - Nutrition - regular - Riddle catheter - not indicated Disposition - I would anticipate discharge home after the hospital stay. Skyler Daniel M.D.
[2018-09-24] MEDS: Sodium Chloride 0.9% 1,000 ML IV SCH (13:25)
[2018-09-25] MEDS: Heparin Sodium 5,000 Units/ML Vial SUBCUT SCH ×3 (02:49→17:56)
[2018-09-25] MEDS: Tamsulosin 0.4 MG Cap.ER PO SCH (08:09)
[2018-09-25] MEDS: Losartan 50 MG Tab PO SCH (08:09)
--- NOTE | 2018-09-25 13:43 | PCM.PN ---
- General Info Date of Service: 09/25/18 Subjective Update: Mr. De La Vega is been stable since yesterday, there has been further improvement in the area of cellulitis involving the hand and wrist on the right. Open wound with surrounding erythema and fluctuance to palpation. Functional Status: Reports: Tolerating Diet, Urinating - Review of Systems General: Denies: Fever, Chills Pulmonary: Reports: No Symptoms Cardiovascular: Reports: No Symptoms Gastrointestinal: Reports: No Symptoms Musculoskeletal: Reports: Other (Inflammation right wrist and hand) - Patient Data Vitals - Most Recent: Last Vital Signs Temp 97.1 F 09/25/18 10:39 Pulse 73 09/25/18 10:39 Resp 18 09/25/18 10:39 BP 156/102 H 09/25/18 10:39 Pulse Ox 95 09/25/18 10:39 Weight - Most Recent: 195 lb 0.017 oz I&O - Last 24 Hours: Intake & Output 09/24/18 09/25/18 09/25/18 22:59 06:59 14:59 Intake Total 884 600 340 Output Total 275 950 650 Balance 609 -350 -310 Lab Results Last 24 Hours: Laboratory Results - last 24 hr 09/25/18 09/25/18 Range/Units 06:00 06:01 WBC 12.0 H (4.5-11.0) K/uL RBC 4.83 (4.30-5.90) M/uL Hgb 13.9 (12.0-15.0) g/dL Hct 40.9 (40.0-54.0) % MCV 85 (80-98) fL MCH 29 (27-31) pg MCHC 34 (32-36) % Plt Count 244 (150-400) K/uL Sodium 139 L (140-148) mmol/L Potassium 3.7 (3.6-5.2) mmol/L Chloride 105 (100-108) mmol/L Carbon Dioxide 26 (21-32) mmol/L Anion Gap 11.7 (5.0-14.0) mmol/L BUN 16 (7-18) mg/dL Creatinine 1.3 (0.8-1.3) mg/dL Est Cr Clr Drug Dosing 60.60 mL/min Estimated GFR (MDRD) 54 L (>60) Glucose 86 (74-106) mg/dL Calcium 8.7 (8.5-10.1) mg/dL Kirt Results Last 24 Hours: Microbiology 09/22/18 22:50 Aerobic Blood Culture - Preliminary Blood - Arm, Left NO GROWTH AFTER 2 DAYS Anaerobic Blood Culture - Preliminary 09/22/18 22:55 Aerobic Blood Culture - Preliminary Blood - Venous NO GROWTH AFTER 2 DAYS Anaerobic Blood Culture - Preliminary NO GROWTH AFTER 2 DAYS Med Orders - Current: Current Medications Acetaminophen (Tylenol) 650 mg PO Q4H PRN PRN Reason: Pain (Mild 1-3)/fever Last Admin: 09/23/18 07:21 Dose: 650 mg Heparin Sodium (Porcine) (Heparin Sodium) 5,000 units SUBCUT Q8H [facility] Last Admin: 09/25/18 10:32 Dose: 5,000 units Vancomycin HCl 1.5 gm/ Sodium (Chloride) 250 mls @ 166.667 mls/hr IV Q12H [facility] Last Admin: 09/25/18 02:50 Dose: 166.667 mls/hr Clindamycin Phosphate 600 mg/ (Sodium Chloride) 54 mls @ 100 mls/hr IV Q8H [facility] Last Admin: 09/25/18 05:29 Dose: 100 mls/hr Sodium Chloride (Normal Saline) 1,000 mls @ 25 mls/hr IV ASDIRECTED [facility] Stop: 09/25/18 23:59 Last Admin: 09/24/18 13:25 Dose: 25 mls/hr Sodium Chloride (Normal Saline) 1,000 mls @ 100 mls/hr IV ASDIRECTED [facility] Losartan Potassium (Cozaar) 100 mg PO DAILY [facility] Last Admin: 09/25/18 08:09 Dose: 100 mg Ondansetron HCl (Zofran Odt) 4 mg PO Q6H PRN PRN Reason: Nausea able to take PO Oxycodone/Acetaminophen (Percocet 325-5 Mg) 1 tab PO Q4H PRN PRN Reason: Pain (moderate 4-6) Senna/Docusate Sodium (Senna Plus) 1 tab PO BID PRN PRN Reason: Constipation Sodium Chloride (Saline Flush) 10 ml FLUSH ASDIRECTED PRN PRN Reason: Keep Vein Open Tamsulosin HCl (Flomax) 0.4 mg PO DAILY [facility] Last Admin: 09/25/18 08:09 Dose: 0.4 mg Discontinued Medications Acetaminophen (Tylenol Extra Strength) 1,000 mg PO ONETIME ONE Stop: 09/22/18 23:59 Last Admin: 09/23/18 00:08 Dose: 1,000 mg Clonidine HCl (Catapres) 0.1 mg PO ONETIME ONE Stop: 09/22/18 23:12 Last Admin: 09/22/18 23:30 Dose: 0.1 mg Heparin Sodium (Porcine) (Heparin Sodium) 5,000 units SUBCUT Q8H [facility] Last Admin: 09/23/18 02:00 Dose: 5,000 units Ceftriaxone Sodium 2 gm/ (Sodium Chloride) 50 mls @ 100 mls/hr IV ONETIME ONE Stop: 09/22/18 23:40 Last Admin: 09/22/18 23:33 Dose: 100 mls/hr Clindamycin Phosphate 900 mg/ (Sodium Chloride) 106 mls @ 200 mls/hr IV ONETIME ONE Stop: 09/22/18 23:43 Last Admin: 09/23/18 00:16 Dose: 200 mls/hr Sodium Chloride (Normal Saline) 1,000 mls @ 1,000 mls/hr IV .BOLUS ONE Stop: 09/23/18 00:12 Last Admin: 09/22/18 23:31 Dose: 1,000 mls/hr Sodium Chloride (Normal Saline) 1,000 mls @ 999 mls/hr IV .BOLUS ONE Stop: 09/23/18 01:23 Last Admin: 09/23/18 00:34 Dose: 999 mls/hr Piperacillin Sod/Tazobactam (Sod 3.375 gm/ Sodium Chloride) 50 mls @ 100 mls/ hr IV Q6H [facility] Last Admin: 09/23/18 06:24 Dose: 100 mls/hr Sodium Chloride (Normal Saline) 1,000 mls @ 150 mls/hr IV ASDIRECTED [facility] Last Admin: 09/23/18 02:04 Dose: 150 mls/hr Vancomycin HCl 1 gm/ Sodium (Chloride) 250 mls @ 150 mls/hr IV Q12H [facility] Vancomycin HCl 1.5 gm/ Sodium (Chloride) 250 mls @ 150 mls/hr IV Q12H [facility] Vancomycin HCl 1.5 gm/ Sodium (Chloride) 250 mls @ 166.667 mls/hr IV Q12H [facility] Vancomycin HCl 1.5 gm/ Sodium (Chloride) 250 mls @ 166.667 mls/hr IV Q24H [facility] Last Admin: 09/23/18 03:00 Dose: 166.667 mls/hr Piperacillin/Tazobactam/ (Dextrose 3.375 gm/ Premix) 50 mls @ 100 mls/hr IV Q6H [facility] Last Admin: 09/24/18 10:59 Dose: 100 mls/hr Sodium Chloride (Normal Saline) 1,000 mls @ 50 mls/hr IV ASDIRECTED [facility] Last Admin: 09/23/18 11:08 Dose: 50 mls/hr Potassium Chloride (Klor-Con M20) 40 meq PO ONETIME ONE Stop: 09/23/18 11:01 Last Admin: 09/23/18 11:07 Dose: 40 meq Potassium Chloride (Klor-Con M20) 40 meq PO ONETIME ONE Stop: 09/24/18 10:01 Last Admin: 09/24/18 10:02 Dose: 40 meq - Exam General: Alert, Oriented, Cooperative, Mild Distress Lungs: Clear to Auscultation, Normal Respiratory Effort Cardiovascular: Regular Rate, Regular Rhythm, No Murmurs GI/Abdominal Exam: Soft, Non-Tender, No Organomegaly, No Distention Extremities: Increased Warmth, Redness - Problem List Review Problem List Initiated/Reviewed/Updated: Yes - My Orders Last 24 Hours: My Active Orders 09/25/18 13:33 Consult to Physician [CONS] Routine 09/25/18 13:34 Notify Provider Consults [RC] ASDIRECTED 09/26/18 00:01 Sodium Chloride 0.9% @ 100 MLS/HR(1000ml) Sodium Chloride 0.9% [Normal Saline] 1 ,000 ml IV ASDIRECTED 09/26/18 05:00 BASIC METABOLIC PANEL,BMP [CHEM] Timed CBC WITH AUTO DIFF [HEME] Timed - Plan Plan:: Assessment and plan Cellulitis right wrist and hand-persistent inflammation involving the area around open wound at the wrist, today noted to have fluctuance to palpation consistent with possible underlying abscess -Continue vancomycin, Zosyn -Consult Dr. Prater for surgical IND CKD stage III -IV normal saline 100 mL per hour when nothing by mouth after midnight Hypertension -Continue outpatient medications DVT prophylaxis heparin 5000 international units every 8 hourly IV fluids 150 mL/h CODE STATUS full code Diet low-salt diet Riddle catheter not indicated Observation status
[2018-09-26] MEDS: Sodium Chloride 0.9% 1,000 ML IV SCH ×3 (02:21→23:05)
[2018-09-26] MEDS: Heparin Sodium 5,000 Units/ML Vial SUBCUT SCH ×3 (02:23→17:22)
[2018-09-26] MEDS ORDERED: Bupivacaine 0.5% 50 ML MDV ONE (07:47)
[2018-09-26] MEDS ORDERED: Lidocaine 1% with EPINEPHrine 1:100,000 50 ML MDV ONE (07:47)
[2018-09-26] MEDS ORDERED: Dexamethasone 4 MG/ML SDV ONE (07:59)
[2018-09-26] MEDS ORDERED: Rocuronium 50 MG/5 ML Vial ONE (07:59)
[2018-09-26] MEDS ORDERED: fentaNYL 250 MCG/5 ML SDV ONE (07:59)
[2018-09-26] MEDS ORDERED: Neostigmine Methylsulfate 1 MG/ML 5 ML Syringe ONE (07:59)
[2018-09-26] MEDS ORDERED: Ondansetron 4 MG/2 ML SDV ONE (07:59)
[2018-09-26] MEDS ORDERED: Glycopyrrolate 0.2 MG/ML 5 ML MDV ONE (07:59)
[2018-09-26] MEDS ORDERED: Succinylcholine 200 MG/10 ML MDV ONE (07:59)
[2018-09-26] MEDS ORDERED: Propofol 200 MG/20 ML SDV ONE (07:59)
[2018-09-26] MEDS: Losartan 50 MG Tab PO SCH (08:49)
[2018-09-26] MEDS: Tamsulosin 0.4 MG Cap.ER PO SCH (08:50)
[2018-09-26] MEDS ORDERED: Sodium Chloride 0.9% 500 ML ONE (10:06)
[2018-09-26] MEDS ORDERED: Sodium Chloride 0.9% 0 ML ONE (10:06)
--- NOTE | 2018-09-26 10:47 | PN ---
DATE OF SERVICE: 09/26/2018 SUBJECTIVE: Jose Angel is n.p.o. He will be having incision and debridement of abscess above his right wrist. His consents have been signed and he is ready to go to surgery. REVIEW OF SYSTEMS: Pain is controlled. He has no other questions or concerns. OBJECTIVE: GENERAL: Jose Angel De La Vega is a 73-year-old male. VITAL SIGNS: TPR is 97.7, 62, 16, blood pressure 169/92. EXTREMITIES: Right forearm, above his wrist, is an abscess, less tender which he states than it was when he first was admitted to the hospital. HEART: Regular rate and rhythm. LUNGS: Clear. ABDOMEN: Soft, nontender. EXTREMITIES: Without peripheral edema. ASSESSMENT: Cellulitis, right forearm; hypertension; history of cerebrovascular accident; and chronic kidney disease. PLAN: Remain n.p.o. Scheduled for incision and debridement of right forearm abscess. N.p.o. orders to be written postoperatively. Brianna Wright PA-C /[id number]
[2018-09-26] MEDS: Acetaminophen 325 MG Tab PO PRN ×2 (11:41→16:25)
--- NOTE | 2018-09-26 17:54 | PCM.PN ---
- General Info Date of Service: 09/26/18 Subjective Update: Mr. De La Vega is status post debridement of abscess at the right wrist done earlier today by Dr. Prater. He has remained hemodynamically stable and afebrile. Reports current pain control adequate. Functional Status: Reports: Pain Controlled, Tolerating Diet, Ambulating, Urinating - Review of Systems General: Denies: Fever, Chills Pulmonary: Reports: No Symptoms Cardiovascular: Reports: No Symptoms Gastrointestinal: Reports: No Symptoms - Patient Data Vitals - Most Recent: Last Vital Signs Temp 97.5 F 09/26/18 17:00 Pulse 71 09/26/18 17:00 Resp 18 09/26/18 17:00 BP 139/91 H 09/26/18 17:00 Pulse Ox 95 09/26/18 17:00 Weight - Most Recent: 191 lb 9.6 oz I&O - Last 24 Hours: Intake & Output 09/26/18 09/26/18 09/26/18 06:59 14:59 22:59 Intake Total 1354 Output Total 900 800 Balance -900 554 Lab Results Last 24 Hours: Laboratory Results - last 24 hr 09/26/18 09/26/18 Range/Units 04:50 04:50 WBC 10.2 (4.5-11.0) K/uL RBC 4.95 (4.30-5.90) M/uL Hgb 14.2 (12.0-15.0) g/dL Hct 41.8 (40.0-54.0) % MCV 84 (80-98) fL MCH 29 (27-31) pg MCHC 34 (32-36) % Plt Count 285 (150-400) K/uL Neut % (Auto) 67 H (36-66) % Lymph % (Auto) 17 L (24-44) % Wilcox % (Auto) 11 H (2-6) % Eos % (Auto) 4 (2-4) % Baso % (Auto) 1 (0-1) % Sodium 139 L (140-148) mmol/L Potassium 3.8 (3.6-5.2) mmol/L Chloride 106 (100-108) mmol/L Carbon Dioxide 25 (21-32) mmol/L Anion Gap 11.8 (5.0-14.0) mmol/L BUN 17 (7-18) mg/dL Creatinine 1.3 (0.8-1.3) mg/dL Est Cr Clr Drug Dosing 60.62 mL/min Estimated GFR (MDRD) 54 L (>60) Glucose 92 (74-106) mg/dL Calcium 9.2 (8.5-10.1) mg/dL Kirt Results Last 24 Hours: Microbiology 09/26/18 10:27 Gram Stain - Final Hand, Right 09/22/18 22:50 Aerobic Blood Culture - Preliminary Blood - Arm, Left NO GROWTH AFTER 3 DAYS Anaerobic Blood Culture - Final Staphylococcus Aureus 09/22/18 22:55 Aerobic Blood Culture - Preliminary Blood - Venous NO GROWTH AFTER 3 DAYS Anaerobic Blood Culture - Preliminary NO GROWTH AFTER 3 DAYS Med Orders - Current: Current Medications Acetaminophen (Tylenol) 650 mg PO Q4H PRN PRN Reason: Pain (Mild 1-3)/fever Last Admin: 09/26/18 16:25 Dose: 650 mg Heparin Sodium (Porcine) (Heparin Sodium) 5,000 units SUBCUT Q8H [facility] Last Admin: 09/26/18 17:22 Dose: 5,000 units Clindamycin Phosphate 600 mg/ (Sodium Chloride) 54 mls @ 100 mls/hr IV Q8H [facility] Last Admin: 09/26/18 13:20 Dose: 100 mls/hr Vancomycin HCl 1.25 gm/ Sodium (Chloride) 250 mls @ 165 mls/hr IV Q12H [facility] Last Admin: 09/26/18 17:19 Dose: 165 mls/hr Losartan Potassium (Cozaar) 100 mg PO DAILY [facility] Last Admin: 09/26/18 08:49 Dose: 100 mg Ondansetron HCl (Zofran Odt) 4 mg PO Q6H PRN PRN Reason: Nausea able to take PO Oxycodone/Acetaminophen (Percocet 325-5 Mg) 1 tab PO Q4H PRN PRN Reason: Pain (moderate 4-6) Senna/Docusate Sodium (Senna Plus) 1 tab PO BID PRN PRN Reason: Constipation Sodium Chloride (Saline Flush) 10 ml FLUSH ASDIRECTED PRN PRN Reason: Keep Vein Open Tamsulosin HCl (Flomax) 0.4 mg PO DAILY [facility] Last Admin: 09/26/18 08:50 Dose: 0.4 mg Discontinued Medications Acetaminophen (Tylenol Extra Strength) 1,000 mg PO ONETIME ONE Stop: 09/22/18 23:59 Last Admin: 09/23/18 00:08 Dose: 1,000 mg Bupivacaine HCl (Marcaine 0.5%) Confirm Administered Dose 50 ml .ROUTE .STK-MED ONE Stop: 09/26/18 07:48 Clonidine HCl (Catapres) 0.1 mg PO ONETIME ONE Stop: 09/22/18 23:12 Last Admin: 09/22/18 23:30 Dose: 0.1 mg Dexamethasone (Dexamethasone) Confirm Administered Dose 4 mg .ROUTE .STK-MED ONE Stop: 09/26/18 08:00 Fentanyl (Sublimaze) Confirm Administered Dose 250 mcg .ROUTE .STK-MED ONE Stop: 09/26/18 08:00 Glycopyrrolate (Robinul) Confirm Administered Dose 1 mg .ROUTE .STK-MED ONE Stop: 09/26/18 08:00 Heparin Sodium (Porcine) (Heparin Sodium) 5,000 units SUBCUT Q8H [facility] Last Admin: 09/23/18 02:00 Dose: 5,000 units Ceftriaxone Sodium 2 gm/ (Sodium Chloride) 50 mls @ 100 mls/hr IV ONETIME ONE Stop: 09/22/18 23:40 Last Admin: 09/22/18 23:33 Dose: 100 mls/hr Clindamycin Phosphate 900 mg/ (Sodium Chloride) 106 mls @ 200 mls/hr IV ONETIME ONE Stop: 09/22/18 23:43 Last Admin: 09/23/18 00:16 Dose: 200 mls/hr Sodium Chloride (Normal Saline) 1,000 mls @ 1,000 mls/hr IV .BOLUS ONE Stop: 09/23/18 00:12 Last Admin: 09/22/18 23:31 Dose: 1,000 mls/hr Sodium Chloride (Normal Saline) 1,000 mls @ 999 mls/hr IV .BOLUS ONE Stop: 09/23/18 01:23 Last Admin: 09/23/18 00:34 Dose: 999 mls/hr Piperacillin Sod/Tazobactam (Sod 3.375 gm/ Sodium Chloride) 50 mls @ 100 mls/ hr IV Q6H [facility] Last Admin: 09/23/18 06:24 Dose: 100 mls/hr Sodium Chloride (Normal Saline) 1,000 mls @ 150 mls/hr IV ASDIRECTED [facility] Last Admin: 09/23/18 02:04 Dose: 150 mls/hr Vancomycin HCl 1 gm/ Sodium (Chloride) 250 mls @ 150 mls/hr IV Q12H [facility] Vancomycin HCl 1.5 gm/ Sodium (Chloride) 250 mls @ 150 mls/hr IV Q12H [facility] Vancomycin HCl 1.5 gm/ Sodium (Chloride) 250 mls @ 166.667 mls/hr IV Q12H [facility] Vancomycin HCl 1.5 gm/ Sodium (Chloride) 250 mls @ 166.667 mls/hr IV Q24H [facility] Last Admin: 09/23/18 03:00 Dose: 166.667 mls/hr Piperacillin/Tazobactam/ (Dextrose 3.375 gm/ Premix) 50 mls @ 100 mls/hr IV Q6H [facility] Last Admin: 09/24/18 10:59 Dose: 100 mls/hr Vancomycin HCl 1.5 gm/ Sodium (Chloride) 250 mls @ 166.667 mls/hr IV Q12H [facility] Last Admin: 09/25/18 02:50 Dose: 166.667 mls/hr Sodium Chloride (Normal Saline) 1,000 mls @ 50 mls/hr IV ASDIRECTED [facility] Last Admin: 09/23/18 11:08 Dose: 50 mls/hr Sodium Chloride (Normal Saline) 1,000 mls @ 25 mls/hr IV ASDIRECTED [facility] Stop: 09/25/18 23:59 Last Admin: 09/24/18 13:25 Dose: 25 mls/hr Sodium Chloride (Normal Saline) 1,000 mls @ 100 mls/hr IV ASDIRECTED [facility] Last Admin: 09/26/18 13:17 Dose: 100 mls/hr Linezolid (Zyvox) Confirm Administered Dose 300 mls @ as directed .ROUTE .STK- MED ONE Stop: 09/26/18 07:48 Sodium Chloride (Normal Saline) Confirm Administered Dose 250 mls @ as directed .ROUTE .STK-MED ONE Stop: 09/26/18 10:07 Sodium Chloride (Normal Saline) Confirm Administered Dose 500 mls @ as directed .ROUTE .STK-MED ONE Stop: 09/26/18 10:07 Lidocaine/Epinephrine (Xylocaine 1% With Epinephrine 1:100,000) Confirm Administered Dose 50 ml .ROUTE .STK-MED ONE Stop: 09/26/18 07:48 Linezolid (Zyvox) 600 mg IRR .STK-MED ONE Stop: 09/26/18 10:21 Last Admin: 09/26/18 10:20 Dose: 600 mg Neostigmine Methylsulfate (Neostigmine) Confirm Administered Dose 5 mg .ROUTE .STK-MED ONE Stop: 09/26/18 08:00 Ondansetron HCl (Zofran) Confirm Administered Dose 4 mg .ROUTE .STK-MED ONE Stop: 09/26/18 08:00 Potassium Chloride (Klor-Con M20) 40 meq PO ONETIME ONE Stop: 09/23/18 11:01 Last Admin: 09/23/18 11:07 Dose: 40 meq Potassium Chloride (Klor-Con M20) 40 meq PO ONETIME ONE Stop: 09/24/18 10:01 Last Admin: 09/24/18 10:02 Dose: 40 meq Propofol (Diprivan 20 Ml) Confirm Administered Dose 200 mg .ROUTE .STK-MED ONE Stop: 09/26/18 08:00 Rocuronium [place] (Zemuron) Confirm Administered Dose 50 mg .ROUTE .STK-MED ONE Stop: 09/26/18 08:00 Succinylcholine Chloride (Quelicin) Confirm Administered Dose 200 mg .ROUTE .STK -MED ONE Stop: 09/26/18 08:00 - Exam Quality Assessment: DVT Prophylaxis General: Alert, Oriented, Cooperative, No Acute Distress Lungs: Clear to Auscultation, Normal Respiratory Effort Cardiovascular: Regular Rate, Regular Rhythm, No Murmurs GI/Abdominal Exam: Soft, Non-Tender, No Organomegaly, No Distention Extremities: No Pedal Edema, Other (Surgical dressing in place right wrist and hand) - Problem List Review Problem List Initiated/Reviewed/Updated: Yes - My Orders Last 24 Hours: My Active Orders 09/25/18 18:00 Vancomycin 1.25 gm Sodium Chloride 0.9% [Normal Saline] 250 ml IV Q12H 09/26/18 14:37 Convert IV to Saline Lock [OM.PC] Routine - Plan Plan:: Assessment and plan Cellulitis right wrist and hand-persistent inflammation involving the area around open wound at the wrist, status post surgical debridement done earlier today by Dr. Prater -Deep cultures obtained at the time of surgery and are pending -Continue vancomycin and clindamycin pending culture results -Surgical follow-up per Dr. Prater CKD stage III-renal function stable -Saline lock IV Hypertension -Continue outpatient medications DVT prophylaxis heparin 5000 international units every 8 hourly IV fluids 150 mL/h CODE STATUS full code Diet low-salt diet Riddle catheter not indicated
[2018-09-27] MEDS: Heparin Sodium 5,000 Units/ML Vial SUBCUT SCH ×3 (02:28→17:13)
--- NOTE | 2018-09-27 08:56 | PN ---
DATE OF SERVICE: 09/27/2018 SUBJECTIVE: Jose Angel is postoperative day one. He reports pain is controlled. He has no questions or concerns. The culture showed Staph aureus. He is on clindamycin and vancomycin. Antibiotics, there will be no change in antibiotics. OBJECTIVE: GENERAL: Jose Angel is a 73-year-old male. SKIN: Right dressing and packing removed per Walter Prater MD. Right arm repacked per nurse with wet saline gauze. ASSESSMENT: Incision and drainage of abscess and debridement of right wrist. PLAN: 1. Continue same treatment. 2. We will evaluate p.r.n. or in a.m. Brianna Wright PA-C /[id number]
[2018-09-27] MEDS: Tamsulosin 0.4 MG Cap.ER PO SCH (09:45)
[2018-09-27] MEDS: Losartan 50 MG Tab PO SCH (09:45)
--- NOTE | 2018-09-27 16:23 | PCM.PN ---
- General Info Date of Service: 09/27/18 Subjective Update: Mr. De La Vega has remained stable since yesterday, no significant temperature elevation in the last 24 hours. Original culture growing staph aureus, most recent wound culture showing no growth. Pain control is adequate and he otherwise feels relatively well. Functional Status: Reports: Pain Controlled, Tolerating Diet, Ambulating, Urinating - Review of Systems General: Denies: Fever, Chills Cardiovascular: Reports: No Symptoms Gastrointestinal: Reports: No Symptoms Genitourinary: Reports: No Symptoms Musculoskeletal: Reports: Other (Surgical dressing in place right wrist) - Patient Data Vitals - Most Recent: Last Vital Signs Temp 97.6 F 09/27/18 15:33 Pulse 67 09/27/18 15:33 Resp 18 09/27/18 15:33 BP 153/96 H 09/27/18 15:33 Pulse Ox 95 09/27/18 15:33 Weight - Most Recent: 192 lb 6 oz I&O - Last 24 Hours: Intake & Output 09/27/18 09/27/18 09/27/18 06:59 14:59 22:59 Intake Total 850 760 Output Total 400 550 250 Balance 450 210 -250 Kirt Results Last 24 Hours: Microbiology 09/26/18 10:27 Gram Stain - Final Hand, Right Wound Culture - Preliminary NO GROWTH AFTER 1 DAY Anaerobic Culture - Preliminary NO GROWTH AFTER 1 DAY 09/22/18 22:50 Aerobic Blood Culture - Preliminary Blood - Arm, Left NO GROWTH AFTER 4 DAYS Anaerobic Blood Culture - Final Staphylococcus Aureus 09/22/18 22:55 Aerobic Blood Culture - Preliminary Blood - Venous NO GROWTH AFTER 4 DAYS Anaerobic Blood Culture - Preliminary NO GROWTH AFTER 4 DAYS Med Orders - Current: Current Medications Acetaminophen (Tylenol) 650 mg PO Q4H PRN PRN Reason: Pain (Mild 1-3)/fever Last Admin: 09/26/18 16:25 Dose: 650 mg Heparin Sodium (Porcine) (Heparin Sodium) 5,000 units SUBCUT Q8H [facility] Last Admin: 09/27/18 09:46 Dose: 5,000 units Doxycycline Hyclate 100 mg/ (Sodium Chloride) 100 mls @ 100 mls/hr IV Q12HR [facility] Losartan Potassium (Cozaar) 100 mg PO DAILY [facility] Last Admin: 09/27/18 09:45 Dose: 100 mg Ondansetron HCl (Zofran Odt) 4 mg PO Q6H PRN PRN Reason: Nausea able to take PO Oxycodone/Acetaminophen (Percocet 325-5 Mg) 1 tab PO Q4H PRN PRN Reason: Pain (moderate 4-6) Senna/Docusate Sodium (Senna Plus) 1 tab PO BID PRN PRN Reason: Constipation Sodium Chloride (Saline Flush) 10 ml FLUSH ASDIRECTED PRN PRN Reason: Keep Vein Open Tamsulosin HCl (Flomax) 0.4 mg PO DAILY [facility] Last Admin: 09/27/18 09:45 Dose: 0.4 mg Discontinued Medications Acetaminophen (Tylenol Extra Strength) 1,000 mg PO ONETIME ONE Stop: 09/22/18 23:59 Last Admin: 09/23/18 00:08 Dose: 1,000 mg Bupivacaine HCl (Marcaine 0.5%) Confirm Administered Dose 50 ml .ROUTE .STK-MED ONE Stop: 09/26/18 07:48 Clonidine HCl (Catapres) 0.1 mg PO ONETIME ONE Stop: 09/22/18 23:12 Last Admin: 09/22/18 23:30 Dose: 0.1 mg Dexamethasone (Dexamethasone) Confirm Administered Dose 4 mg .ROUTE .STK-MED ONE Stop: 09/26/18 08:00 Fentanyl (Sublimaze) Confirm Administered Dose 250 mcg .ROUTE .STK-MED ONE Stop: 09/26/18 08:00 Glycopyrrolate (Robinul) Confirm Administered Dose 1 mg .ROUTE .STK-MED ONE Stop: 09/26/18 08:00 Heparin Sodium (Porcine) (Heparin Sodium) 5,000 units SUBCUT Q8H [facility] Last Admin: 09/23/18 02:00 Dose: 5,000 units Ceftriaxone Sodium 2 gm/ (Sodium Chloride) 50 mls @ 100 mls/hr IV ONETIME ONE Stop: 09/22/18 23:40 Last Admin: 09/22/18 23:33 Dose: 100 mls/hr Clindamycin Phosphate 900 mg/ (Sodium Chloride) 106 mls @ 200 mls/hr IV ONETIME ONE Stop: 09/22/18 23:43 Last Admin: 09/23/18 00:16 Dose: 200 mls/hr Sodium Chloride (Normal Saline) 1,000 mls @ 1,000 mls/hr IV .BOLUS ONE Stop: 09/23/18 00:12 Last Admin: 09/22/18 23:31 Dose: 1,000 mls/hr Sodium Chloride (Normal Saline) 1,000 mls @ 999 mls/hr IV .BOLUS ONE Stop: 09/23/18 01:23 Last Admin: 09/23/18 00:34 Dose: 999 mls/hr Piperacillin Sod/Tazobactam (Sod 3.375 gm/ Sodium Chloride) 50 mls @ 100 mls/ hr IV Q6H [facility] Last Admin: 09/23/18 06:24 Dose: 100 mls/hr Sodium Chloride (Normal Saline) 1,000 mls @ 150 mls/hr IV ASDIRECTED [facility] Last Admin: 09/23/18 02:04 Dose: 150 mls/hr Vancomycin HCl 1 gm/ Sodium (Chloride) 250 mls @ 150 mls/hr IV Q12H [facility] Vancomycin HCl 1.5 gm/ Sodium (Chloride) 250 mls @ 150 mls/hr IV Q12H [facility] Vancomycin HCl 1.5 gm/ Sodium (Chloride) 250 mls @ 166.667 mls/hr IV Q12H [facility] Vancomycin HCl 1.5 gm/ Sodium (Chloride) 250 mls @ 166.667 mls/hr IV Q24H [facility] Last Admin: 09/23/18 03:00 Dose: 166.667 mls/hr Piperacillin/Tazobactam/ (Dextrose 3.375 gm/ Premix) 50 mls @ 100 mls/hr IV Q6H [facility] Last Admin: 09/24/18 10:59 Dose: 100 mls/hr Vancomycin HCl 1.5 gm/ Sodium (Chloride) 250 mls @ 166.667 mls/hr IV Q12H [facility] Last Admin: 09/25/18 02:50 Dose: 166.667 mls/hr Sodium Chloride (Normal Saline) 1,000 mls @ 50 mls/hr IV ASDIRECTED [facility] Last Admin: 09/23/18 11:08 Dose: 50 mls/hr Clindamycin Phosphate 600 mg/ (Sodium Chloride) 54 mls @ 100 mls/hr IV Q8H [facility] Last Admin: 09/27/18 14:42 Dose: 100 mls/hr Sodium Chloride (Normal Saline) 1,000 mls @ 25 mls/hr IV ASDIRECTED [facility] Stop: 09/25/18 23:59 Last Admin: 09/26/18 23:05 Dose: 25 mls/hr Sodium Chloride (Normal Saline) 1,000 mls @ 100 mls/hr IV ASDIRECTED [facility] Last Admin: 09/26/18 13:17 Dose: 100 mls/hr Vancomycin HCl 1.25 gm/ Sodium (Chloride) 250 mls @ 165 mls/hr IV Q12H [facility] Last Admin: 09/27/18 06:22 Dose: 165 mls/hr Linezolid (Zyvox) Confirm Administered Dose 300 mls @ as directed .ROUTE .STK- MED ONE Stop: 09/26/18 07:48 Sodium Chloride (Normal Saline) Confirm Administered Dose 250 mls @ as directed .ROUTE .STK-MED ONE Stop: 09/26/18 10:07 Sodium Chloride (Normal Saline) Confirm Administered Dose 500 mls @ as directed .ROUTE .STK-MED ONE Stop: 09/26/18 10:07 Lidocaine/Epinephrine (Xylocaine 1% With Epinephrine 1:100,000) Confirm Administered Dose 50 ml .ROUTE .STK-MED ONE Stop: 09/26/18 07:48 Linezolid (Zyvox) 600 mg IRR .STK-MED ONE Stop: 09/26/18 10:21 Last Admin: 09/26/18 10:20 Dose: 600 mg Neostigmine Methylsulfate (Neostigmine) Confirm Administered Dose 5 mg .ROUTE .STK-MED ONE Stop: 09/26/18 08:00 Ondansetron HCl (Zofran) Confirm Administered Dose 4 mg .ROUTE .STK-MED ONE Stop: 09/26/18 08:00 Potassium Chloride (Klor-Con M20) 40 meq PO ONETIME ONE Stop: 09/23/18 11:01 Last Admin: 09/23/18 11:07 Dose: 40 meq Potassium Chloride (Klor-Con M20) 40 meq PO ONETIME ONE Stop: 09/24/18 10:01 Last Admin: 09/24/18 10:02 Dose: 40 meq Propofol (Diprivan 20 Ml) Confirm Administered Dose 200 mg .ROUTE .STK-MED ONE Stop: 09/26/18 08:00 Rocuronium [place] (Zemuron) Confirm Administered Dose 50 mg .ROUTE .STK-MED ONE Stop: 09/26/18 08:00 Succinylcholine Chloride (Quelicin) Confirm Administered Dose 200 mg .ROUTE .STK -MED ONE Stop: 09/26/18 08:00 - Exam Quality Assessment: DVT Prophylaxis General: Alert, Oriented, Cooperative, No Acute Distress Lungs: Clear to Auscultation, Normal Respiratory Effort Cardiovascular: Regular Rate, Regular Rhythm, No Murmurs GI/Abdominal Exam: Soft, Non-Tender, No Organomegaly, No Distention - Problem List Review Problem List Initiated/Reviewed/Updated: Yes - My Orders Last 24 Hours: My Active Orders 09/27/18 16:30 Doxycycline [Vibramycin] 100 mg Sodium Chloride 0.9% [Normal Saline] 100 ml IV Q12HR 09/28/18 05:30 VANCOMYCIN TROUGH [CHEM] Routine - Plan Plan:: Assessment and plan Cellulitis right wrist and hand-persistent inflammation involving the area around open wound at the wrist, status post surgical debridement done by Dr. Prater. Original wound cultures are growing MSSA, most recent cultures showing no growth -Discontinue vancomycin and clindamycin -Doxycycline 100 mg IV every 12 hours -Surgical follow-up per Dr. Prater CKD stage III-renal function stable -Saline lock IV Hypertension -Continue outpatient medications DVT prophylaxis heparin 5000 international units every 8 hourly IV fluids 150 mL/h CODE STATUS full code Diet low-salt diet Riddle catheter not indicated
[2018-09-27] MEDS: Doxycycline 100 MG in Sodium Chloride 0.9% 100 ML IV SCH (17:14)
[2018-09-28] MEDS: Heparin Sodium 5,000 Units/ML Vial SUBCUT SCH ×3 (02:47→17:24)
[2018-09-28] MEDS: Doxycycline 100 MG in Sodium Chloride 0.9% 100 ML IV SCH ×2 (05:07→16:17)
--- NOTE | 2018-09-28 08:08 | PN ---
DATE OF SERVICE: 09/28/2018 SUBJECTIVE: Jose Angel De La Vega is a 73-year-old male who had a surgical procedure, incision and drainage of the right wrist. He states the pain is controlled. He has no other questions or concerns. OBJECTIVE: GENERAL: Jose Angel is a pleasant 73-year-old male. VITAL SIGNS: TPR is 98, 66, 16, blood pressure is 160/107. HEENT: Negative. NECK: Supple. HEART: Regular rate and rhythm. LUNGS: Clear. EXTREMITIES: Right wrist dressing dry and intact. ASSESSMENT: Incision and drainage of abscess and debridement of right wrist. Date of procedure 09/26/2017. Surgeon, Walter Prater MD. PLAN: 1. Dressing changes b.i.d., wet-to-dry, wrap secure with Satish wrap. 2. Teach how to change the dressing. 3. We will evaluate p.r.n. or in a.m. Brianna Wright PA-C /[id number]
[2018-09-28] MEDS: Tamsulosin 0.4 MG Cap.ER PO SCH (09:07)
[2018-09-28] MEDS: Losartan 50 MG Tab PO SCH (09:07)
[2018-09-28] MEDS: Metoprolol Tartrate 25 MG Tab PO SCH ×3 (14:33→22:47)
--- NOTE | 2018-09-28 15:12 | PCM.PN ---
- General Info Date of Service: 09/28/18 Subjective Update: Mr. De La Vega has remained stable and she yesterday. No significant temperature elevations, blood pressure has been consistently elevated. - Review of Systems General: Denies: Fever, Chills Pulmonary: Reports: No Symptoms Cardiovascular: Reports: No Symptoms Gastrointestinal: Reports: No Symptoms - Patient Data Vitals - Most Recent: Last Vital Signs Temp 97.7 F 09/28/18 10:35 Pulse 68 09/28/18 14:33 Resp 16 09/28/18 10:35 BP 160/100 H 09/28/18 14:33 Pulse Ox 97 09/28/18 10:35 Weight - Most Recent: 195 lb 3.2 oz I&O - Last 24 Hours: Intake & Output 09/28/18 09/28/18 09/28/18 06:59 14:59 22:59 Intake Total 600 Output Total 500 Balance 100 Lab Results Last 24 Hours: Laboratory Results - last 24 hr 09/28/18 Range/Units 05:40 Vancomycin Trough Cancelled Kirt Results Last 24 Hours: Microbiology 09/26/18 10:27 Gram Stain - Final Hand, Right Wound Culture - Preliminary NO GROWTH AFTER 2 DAYS Anaerobic Culture - Preliminary NO GROWTH AFTER 2 DAYS 09/22/18 22:55 Aerobic Blood Culture - Final Blood - Venous NO GROWTH AFTER 5 DAYS Anaerobic Blood Culture - Final NO GROWTH AFTER 5 DAYS 09/22/18 22:50 Aerobic Blood Culture - Final Blood - Arm, Left NO GROWTH AFTER 5 DAYS Anaerobic Blood Culture - Final Staphylococcus Aureus Med Orders - Current: Current Medications Acetaminophen (Tylenol) 650 mg PO Q4H PRN PRN Reason: Pain (Mild 1-3)/fever Last Admin: 09/26/18 16:25 Dose: 650 mg Heparin Sodium (Porcine) (Heparin Sodium) 5,000 units SUBCUT Q8H [facility] Last Admin: 09/28/18 09:07 Dose: 5,000 units Doxycycline Hyclate 100 mg/ (Sodium Chloride) 100 mls @ 100 mls/hr IV Q12H [facility] Last Admin: 09/28/18 05:07 Dose: 100 mls/hr Losartan Potassium (Cozaar) 100 mg PO DAILY [facility] Last Admin: 09/28/18 09:07 Dose: 100 mg Metoprolol Tartrate (Lopressor) 25 mg PO Q6H [facility] Last Admin: 09/28/18 14:33 Dose: 25 mg Ondansetron HCl (Zofran Odt) 4 mg PO Q6H PRN PRN Reason: Nausea able to take PO Oxycodone/Acetaminophen (Percocet 325-5 Mg) 1 tab PO Q4H PRN PRN Reason: Pain (moderate 4-6) Senna/Docusate Sodium (Senna Plus) 1 tab PO BID PRN PRN Reason: Constipation Sodium Chloride (Saline Flush) 10 ml FLUSH ASDIRECTED PRN PRN Reason: Keep Vein Open Tamsulosin HCl (Flomax) 0.4 mg PO DAILY [facility] Last Admin: 09/28/18 09:07 Dose: 0.4 mg Discontinued Medications Acetaminophen (Tylenol Extra Strength) 1,000 mg PO ONETIME ONE Stop: 09/22/18 23:59 Last Admin: 09/23/18 00:08 Dose: 1,000 mg Bupivacaine HCl (Marcaine 0.5%) Confirm Administered Dose 50 ml .ROUTE .STK-MED ONE Stop: 09/26/18 07:48 Clonidine HCl (Catapres) 0.1 mg PO ONETIME ONE Stop: 09/22/18 23:12 Last Admin: 09/22/18 23:30 Dose: 0.1 mg Dexamethasone (Dexamethasone) Confirm Administered Dose 4 mg .ROUTE .STK-MED ONE Stop: 09/26/18 08:00 Fentanyl (Sublimaze) Confirm Administered Dose 250 mcg .ROUTE .STK-MED ONE Stop: 09/26/18 08:00 Glycopyrrolate (Robinul) Confirm Administered Dose 1 mg .ROUTE .STK-MED ONE Stop: 09/26/18 08:00 Heparin Sodium (Porcine) (Heparin Sodium) 5,000 units SUBCUT Q8H [facility] Last Admin: 09/23/18 02:00 Dose: 5,000 units Ceftriaxone Sodium 2 gm/ (Sodium Chloride) 50 mls @ 100 mls/hr IV ONETIME ONE Stop: 09/22/18 23:40 Last Admin: 09/22/18 23:33 Dose: 100 mls/hr Clindamycin Phosphate 900 mg/ (Sodium Chloride) 106 mls @ 200 mls/hr IV ONETIME ONE Stop: 09/22/18 23:43 Last Admin: 09/23/18 00:16 Dose: 200 mls/hr Sodium Chloride (Normal Saline) 1,000 mls @ 1,000 mls/hr IV .BOLUS ONE Stop: 09/23/18 00:12 Last Admin: 09/22/18 23:31 Dose: 1,000 mls/hr Sodium Chloride (Normal Saline) 1,000 mls @ 999 mls/hr IV .BOLUS ONE Stop: 09/23/18 01:23 Last Admin: 09/23/18 00:34 Dose: 999 mls/hr Piperacillin Sod/Tazobactam (Sod 3.375 gm/ Sodium Chloride) 50 mls @ 100 mls/ hr IV Q6H [facility] Last Admin: 09/23/18 06:24 Dose: 100 mls/hr Sodium Chloride (Normal Saline) 1,000 mls @ 150 mls/hr IV ASDIRECTED [facility] Last Admin: 09/23/18 02:04 Dose: 150 mls/hr Vancomycin HCl 1 gm/ Sodium (Chloride) 250 mls @ 150 mls/hr IV Q12H [facility] Vancomycin HCl 1.5 gm/ Sodium (Chloride) 250 mls @ 150 mls/hr IV Q12H [facility] Vancomycin HCl 1.5 gm/ Sodium (Chloride) 250 mls @ 166.667 mls/hr IV Q12H [facility] Vancomycin HCl 1.5 gm/ Sodium (Chloride) 250 mls @ 166.667 mls/hr IV Q24H [facility] Last Admin: 09/23/18 03:00 Dose: 166.667 mls/hr Piperacillin/Tazobactam/ (Dextrose 3.375 gm/ Premix) 50 mls @ 100 mls/hr IV Q6H [facility] Last Admin: 09/24/18 10:59 Dose: 100 mls/hr Vancomycin HCl 1.5 gm/ Sodium (Chloride) 250 mls @ 166.667 mls/hr IV Q12H [facility] Last Admin: 09/25/18 02:50 Dose: 166.667 mls/hr Sodium Chloride (Normal Saline) 1,000 mls @ 50 mls/hr IV ASDIRECTED [facility] Last Admin: 09/23/18 11:08 Dose: 50 mls/hr Clindamycin Phosphate 600 mg/ (Sodium Chloride) 54 mls @ 100 mls/hr IV Q8H [facility] Last Admin: 09/27/18 14:42 Dose: 100 mls/hr Sodium Chloride (Normal Saline) 1,000 mls @ 25 mls/hr IV ASDIRECTED [facility] Stop: 09/25/18 23:59 Last Admin: 09/26/18 23:05 Dose: 25 mls/hr Sodium Chloride (Normal Saline) 1,000 mls @ 100 mls/hr IV ASDIRECTED [facility] Last Admin: 09/26/18 13:17 Dose: 100 mls/hr Vancomycin HCl 1.25 gm/ Sodium (Chloride) 250 mls @ 165 mls/hr IV Q12H [facility] Last Admin: 09/27/18 06:22 Dose: 165 mls/hr Linezolid (Zyvox) Confirm Administered Dose 300 mls @ as directed .ROUTE .STK- MED ONE Stop: 09/26/18 07:48 Sodium Chloride (Normal Saline) Confirm Administered Dose 250 mls @ as directed .ROUTE .STK-MED ONE Stop: 09/26/18 10:07 Sodium Chloride (Normal Saline) Confirm Administered Dose 500 mls @ as directed .ROUTE .STK-MED ONE Stop: 09/26/18 10:07 Lidocaine/Epinephrine (Xylocaine 1% With Epinephrine 1:100,000) Confirm Administered Dose 50 ml .ROUTE .STK-MED ONE Stop: 09/26/18 07:48 Linezolid (Zyvox) 600 mg IRR .STK-MED ONE Stop: 09/26/18 10:21 Last Admin: 09/26/18 10:20 Dose: 600 mg Neostigmine Methylsulfate (Neostigmine) Confirm Administered Dose 5 mg .ROUTE .STK-MED ONE Stop: 09/26/18 08:00 Ondansetron HCl (Zofran) Confirm Administered Dose 4 mg .ROUTE .STK-MED ONE Stop: 09/26/18 08:00 Potassium Chloride (Klor-Con M20) 40 meq PO ONETIME ONE Stop: 09/23/18 11:01 Last Admin: 09/23/18 11:07 Dose: 40 meq Potassium Chloride (Klor-Con M20) 40 meq PO ONETIME ONE Stop: 09/24/18 10:01 Last Admin: 09/24/18 10:02 Dose: 40 meq Propofol (Diprivan 20 Ml) Confirm Administered Dose 200 mg .ROUTE .STK-MED ONE Stop: 09/26/18 08:00 Rocuronium [place] (Zemuron) Confirm Administered Dose 50 mg .ROUTE .STK-MED ONE Stop: 09/26/18 08:00 Succinylcholine Chloride (Quelicin) Confirm Administered Dose 200 mg .ROUTE .STK -MED ONE Stop: 09/26/18 08:00 - Exam General: Alert, Oriented, Cooperative, Mild Distress Lungs: Clear to Auscultation, Normal Respiratory Effort Cardiovascular: Regular Rate, Regular Rhythm, No Murmurs GI/Abdominal Exam: Soft, Non-Tender, No Organomegaly, No Distention - Problem List Review Problem List Initiated/Reviewed/Updated: Yes - My Orders Last 24 Hours: My Active Orders 09/27/18 17:00 Doxycycline [Vibramycin] 100 mg Sodium Chloride 0.9% [Normal Saline] 100 ml IV Q12H 09/28/18 16:00 Metoprolol Tartrate [Lopressor] 25 mg PO Q6H - Plan Plan:: Assessment and plan Cellulitis right wrist and hand-persistent inflammation involving the area around open wound at the wrist, status post surgical debridement done by Dr. Prater. Original wound cultures are growing MSSA, most recent cultures showing no growth -Doxycycline 100 mg IV every 12 hours -Surgical follow-up per Dr. Prater CKD stage III-renal function stable -Saline lock IV Hypertension-blood pressure consistently elevated -Continue outpatient medications -Add metoprolol 25 mg by mouth every 6 hours, convert to long-acting form tomorrow if tolerated and otherwise stable DVT prophylaxis heparin 5000 international units every 8 hourly CODE STATUS full code Diet low-salt diet Riddle catheter not indicated
[2018-09-29] MEDS: Heparin Sodium 5,000 Units/ML Vial SUBCUT SCH ×2 (02:53→09:09)
[2018-09-29] MEDS: Doxycycline 100 MG in Sodium Chloride 0.9% 100 ML IV SCH (04:24)
[2018-09-29] MEDS: Metoprolol Tartrate 25 MG Tab PO SCH ×2 (04:24→09:10)
[2018-09-29] MEDS: Losartan 50 MG Tab PO SCH (08:48)
[2018-09-29] MEDS: Tamsulosin 0.4 MG Cap.ER PO SCH (08:48)
--- NOTE | 2018-09-29 09:56 | PN ---
DATE OF SERVICE: 09/29/2018 SUBJECTIVE: Jose Angel will be discharged today after Rigo Orona MD, hospitalist reviews his cardiovascular medications. Ms. De La Vega was instructed on how to change dressing of right wrist twice daily. Jose Angel denies pain, has been afebrile. Dealing with hypertension. In the past 24 hours, highest blood pressure was 190/101. REVIEW OF SYSTEMS: Remainder of review of systems negative for any pertinent positives and negatives. OBJECTIVE: GENERAL: Jose Angel De La Vega is a 73-year-old male. VITAL SIGNS: TPR is 97.2, 57, 16, blood pressure 187/97. HEENT: Negative. NECK: Supple. HEART: Regular rate and rhythm. LUNGS: Clear. EXTREMITIES: Right wrist dressing is dry and intact. ASSESSMENT: Incision and drainage of abscess and debridement, right wrist. Date of procedure, 09/26/2017. Surgeon, Walter Prater MD. Discharged from the surgical service to go home when discharge per Rigo Orona MD with doxycycline 100 mg p.o. b.i.d. for 10 days. When discharged, he is to follow up with Walter Prater MD, on 10/04/2018, at 8:15 a.m. Brianna Wright PA-C /[id number]
[2018-09-29] MEDS: Acetaminophen 325 MG Tab PO PRN (12:06)
--- NOTE | 2018-09-29 12:15 | PCM.DCSUM1 ---
Discharge Summary - Hospital Course Brief History: Mr. De La Vega is a 73-year-old gentleman who was admitted through the emergency department with cellulitis of the right wrist and hand. - Discharge Data Discharge Date: 09/29/18 Discharge Disposition: Home, Self-Care 01 Condition: Stable - Discharge Diagnosis/Problem(s) (1) Abscess of right forearm SNOMED Code(s): 90454006 ICD Code: L02.413 - CUTANEOUS ABSCESS OF RIGHT UPPER LIMB Status: Acute Current Visit: Yes (2) Cellulitis of forearm, right SNOMED Code(s): 16726992 ICD Code: L03.113 - CELLULITIS OF RIGHT UPPER LIMB Status: Acute Current Visit: Yes (3) CKD (chronic kidney disease) stage 3, GFR 30-59 ml/min SNOMED Code(s): 112109863 ICD Code: N18.3 - CHRONIC KIDNEY DISEASE, STAGE 3 (MODERATE) Status: Acute Current Visit: Yes - Patient Summary/Data Consults: Consultations 09/25/18 13:33 Consult to Physician [CONS] Routine Consulting Provider: Walter Prater Courtesy Call Completed to Consulting Physician: Yes Reason for Consult: Cellulitis/abscess R wrist Hospital Course: 73-year-old male with past medical history of CVA, CKD, hypertension on losartan medication came to the ED with a complaining of redness of anterior surface of the right upper extremity. Patient evaluated in the clinic and diagnosed with cellulitis and started him on cephalexin medication in the morning. Patient came to the ED with a complaining of altered mental status associated with pain at the cellulitis area. 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 Patient has intermittent fever maximum fever maximum was 102 at home. The patient blood pressure medication increased from losartan 50g to 100 mg today. Patient denies any chest pain, exertional chest pain, breathing difficulty, headaches, dizziness, lightheadedness, disturbance in bowel and bladder habits. Patient is a full code In the ED patient received 1 dose of clindamycin and received 1 L of IV fluids. Patient WBC count increased from 12-19 with lactic acid levels are 1.1. Patient blood pressures are elevated. Other review of systems are not significant On admission he was given IV fluids for hydration and started on IV antibiotic therapy with clindamycin and vancomycin. Over the next few days of hospitalization. Cellulitis decrease in size when he developed a fluctuant area over the injury. Was seen and evaluated by Dr. Prater for surgery consult and was taken to the operating room for debridement. Initial cultures obtained from the wound brought staph aureus, deeper cultures obtained at the time of surgery showed no growth. Staph aureus was methicillin sensitive and he was converted to IV antibiotic therapy with doxycycline and will be discharged to home with one additional week of oral doxycycline. Blood pressure was intermittently elevated during the hospital stay and he was started transiently on metoprolol. At the time of discharge patient requested that he not be discharged home with the metoprolol. He will monitor blood pressures regularly and follow-up with his primary care provider concerning hypertension within the next week. Follow- up appointment is already been scheduled with Dr. Prater. Activity will be as tolerated and he will resume his usual diet. - Patient Instructions Diet: Usual Diet as Tolerated, Drink 8-10+ Glasses/Day Activity: As Tolerated Showering/Bathing: May Shower Wound/Incision Care: Keep Operative Site/Wound Site Clean and Dry Notify Provider of: Fever, Increased Pain, Swelling and Redness, Drainage Other/Special Instructions: Patient already has follow-up appointment with Dr. Prater. Please schedule follow-up appointment with Mamie Mata within one week for reassessment of hypertension. - Discharge Plan *PRESCRIPTION DRUG MONITORING PROGRAM REVIEWED*: Not Applicable *COPY OF PRESCRIPTION DRUG MONITORING REPORT IN PATIENT FARHAN: Not Applicable Prescriptions/Med Rec: Doxycycline [Vibramycin] 100 mg PO BID #20 cap Home Medications: Home Meds Losartan [Cozaar] 100 mg PO DAILY 09/22/18 [History] Tamsulosin HCl [Flomax] 0.4 mg PO DAILY 09/22/18 [History] Doxycycline [Vibramycin] 100 mg PO BID #20 cap 09/29/18 [Rx] Referrals: Brandan Mata NP [Primary Care Provider] - Walter Prater MD [Physician] - 10/04/18 8:15 am - Discharge Summary/Plan Comment DC Time >30 min.: No - Patient Data Vitals - Most Recent: Last Vital Signs Temp 96.7 F 09/29/18 10:58 Pulse 67 09/29/18 10:58 Resp 16 09/29/18 10:58 BP 136/90 09/29/18 10:58 Pulse Ox 97 09/29/18 10:58 Weight - Most Recent: 186 lb 9.6 oz I&O - Last 24 hours: Intake & Output 09/28/18 09/29/18 09/29/18 22:59 06:59 14:59 Intake Total 260 340 240 Output Total 375 Balance 260 340 -135 KAREN Results - Last 24 hrs: Microbiology 09/26/18 10:27 Gram Stain - Final Hand, Right Wound Culture - Final NO GROWTH AFTER 3 DAYS Anaerobic Culture - Final NO GROWTH AFTER 3 DAYS Med Orders - Current: Current Medications Acetaminophen (Tylenol) 650 mg PO Q4H PRN PRN Reason: Pain (Mild 1-3)/fever Last Admin: 09/29/18 12:06 Dose: 650 mg Heparin Sodium (Porcine) (Heparin Sodium) 5,000 units SUBCUT Q8H [facility] Last Admin: 09/29/18 09:09 Dose: 5,000 units Doxycycline Hyclate 100 mg/ (Sodium Chloride) 100 mls @ 100 mls/hr IV Q12H [facility] Last Admin: 09/29/18 04:24 Dose: 100 mls/hr Losartan Potassium (Cozaar) 100 mg PO DAILY [facility] Last Admin: 09/29/18 08:48 Dose: 100 mg Metoprolol Tartrate (Lopressor) 25 mg PO Q6H [facility] Last Admin: 09/29/18 09:10 Dose: 25 mg Ondansetron HCl (Zofran Odt) 4 mg PO Q6H PRN PRN Reason: Nausea able to take PO Oxycodone/Acetaminophen (Percocet 325-5 Mg) 1 tab PO Q4H PRN PRN Reason: Pain (moderate 4-6) Senna/Docusate Sodium (Senna Plus) 1 tab PO BID PRN PRN Reason: Constipation Sodium Chloride (Saline Flush) 10 ml FLUSH ASDIRECTED PRN PRN Reason: Keep Vein Open Tamsulosin HCl (Flomax) 0.4 mg PO DAILY [facility] Last Admin: 09/29/18 08:48 Dose: 0.4 mg Discontinued Medications Acetaminophen (Tylenol Extra Strength) 1,000 mg PO ONETIME ONE Stop: 09/22/18 23:59 Last Admin: 09/23/18 00:08 Dose: 1,000 mg Bupivacaine HCl (Marcaine 0.5%) Confirm Administered Dose 50 ml .ROUTE .STK-MED ONE Stop: 09/26/18 07:48 Clonidine HCl (Catapres) 0.1 mg PO ONETIME ONE Stop: 09/22/18 23:12 Last Admin: 09/22/18 23:30 Dose: 0.1 mg Dexamethasone (Dexamethasone) Confirm Administered Dose 4 mg .ROUTE .STK-MED ONE Stop: 09/26/18 08:00 Fentanyl (Sublimaze) Confirm Administered Dose 250 mcg .ROUTE .STK-MED ONE Stop: 09/26/18 08:00 Glycopyrrolate (Robinul) Confirm Administered Dose 1 mg .ROUTE .STK-MED ONE Stop: 09/26/18 08:00 Heparin Sodium (Porcine) (Heparin Sodium) 5,000 units SUBCUT Q8H [facility] Last Admin: 09/23/18 02:00 Dose: 5,000 units Ceftriaxone Sodium 2 gm/ (Sodium Chloride) 50 mls @ 100 mls/hr IV ONETIME ONE Stop: 09/22/18 23:40 Last Admin: 09/22/18 23:33 Dose: 100 mls/hr Clindamycin Phosphate 900 mg/ (Sodium Chloride) 106 mls @ 200 mls/hr IV ONETIME ONE Stop: 09/22/18 23:43 Last Admin: 09/23/18 00:16 Dose: 200 mls/hr Sodium Chloride (Normal Saline) 1,000 mls @ 1,000 mls/hr IV .BOLUS ONE Stop: 09/23/18 00:12 Last Admin: 09/22/18 23:31 Dose: 1,000 mls/hr Sodium Chloride (Normal Saline) 1,000 mls @ 999 mls/hr IV .BOLUS ONE Stop: 09/23/18 01:23 Last Admin: 09/23/18 00:34 Dose: 999 mls/hr Piperacillin Sod/Tazobactam (Sod 3.375 gm/ Sodium Chloride) 50 mls @ 100 mls/ hr IV Q6H [facility] Last Admin: 09/23/18 06:24 Dose: 100 mls/hr Sodium Chloride (Normal Saline) 1,000 mls @ 150 mls/hr IV ASDIRECTED [facility] Last Admin: 09/23/18 02:04 Dose: 150 mls/hr Vancomycin HCl 1 gm/ Sodium (Chloride) 250 mls @ 150 mls/hr IV Q12H [facility] Vancomycin HCl 1.5 gm/ Sodium (Chloride) 250 mls @ 150 mls/hr IV Q12H [facility] Vancomycin HCl 1.5 gm/ Sodium (Chloride) 250 mls @ 166.667 mls/hr IV Q12H [facility] Vancomycin HCl 1.5 gm/ Sodium (Chloride) 250 mls @ 166.667 mls/hr IV Q24H [facility] Last Admin: 09/23/18 03:00 Dose: 166.667 mls/hr Piperacillin/Tazobactam/ (Dextrose 3.375 gm/ Premix) 50 mls @ 100 mls/hr IV Q6H [facility] Last Admin: 09/24/18 10:59 Dose: 100 mls/hr Vancomycin HCl 1.5 gm/ Sodium (Chloride) 250 mls @ 166.667 mls/hr IV Q12H [facility] Last Admin: 09/25/18 02:50 Dose: 166.667 mls/hr Sodium Chloride (Normal Saline) 1,000 mls @ 50 mls/hr IV ASDIRECTED [facility] Last Admin: 09/23/18 11:08 Dose: 50 mls/hr Clindamycin Phosphate 600 mg/ (Sodium Chloride) 54 mls @ 100 mls/hr IV Q8H [facility] Last Admin: 09/27/18 14:42 Dose: 100 mls/hr Sodium Chloride (Normal Saline) 1,000 mls @ 25 mls/hr IV ASDIRECTED [facility] Stop: 09/25/18 23:59 Last Admin: 09/26/18 23:05 Dose: 25 mls/hr Sodium Chloride (Normal Saline) 1,000 mls @ 100 mls/hr IV ASDIRECTED [facility] Last Admin: 09/26/18 13:17 Dose: 100 mls/hr Vancomycin HCl 1.25 gm/ Sodium (Chloride) 250 mls @ 165 mls/hr IV Q12H [facility] Last Admin: 09/27/18 06:22 Dose: 165 mls/hr Linezolid (Zyvox) Confirm Administered Dose 300 mls @ as directed .ROUTE .STK- MED ONE Stop: 09/26/18 07:48 Sodium Chloride (Normal Saline) Confirm Administered Dose 250 mls @ as directed .ROUTE .STK-MED ONE Stop: 09/26/18 10:07 Sodium Chloride (Normal Saline) Confirm Administered Dose 500 mls @ as directed .ROUTE .STK-MED ONE Stop: 09/26/18 10:07 Lidocaine/Epinephrine (Xylocaine 1% With Epinephrine 1:100,000) Confirm Administered Dose 50 ml .ROUTE .STK-MED ONE Stop: 09/26/18 07:48 Linezolid (Zyvox) 600 mg IRR .STK-MED ONE Stop: 09/26/18 10:21 Last Admin: 09/26/18 10:20 Dose: 600 mg Neostigmine Methylsulfate (Neostigmine) Confirm Administered Dose 5 mg .ROUTE .STK-MED ONE Stop: 09/26/18 08:00 Ondansetron HCl (Zofran) Confirm Administered Dose 4 mg .ROUTE .STK-MED ONE Stop: 09/26/18 08:00 Potassium Chloride (Klor-Con M20) 40 meq PO ONETIME ONE Stop: 09/23/18 11:01 Last Admin: 09/23/18 11:07 Dose: 40 meq Potassium Chloride (Klor-Con M20) 40 meq PO ONETIME ONE Stop: 09/24/18 10:01 Last Admin: 09/24/18 10:02 Dose: 40 meq Propofol (Diprivan 20 Ml) Confirm Administered Dose 200 mg .ROUTE .ST-MED ONE Stop: 09/26/18 08:00 Rocuronium [place] (Zemuron) Confirm Administered Dose 50 mg .ROUTE .STK-MED ONE Stop: 09/26/18 08:00 Succinylcholine Chloride (Quelicin) Confirm Administered Dose 200 mg .ROUTE .STK -MED ONE Stop: 09/26/18 08:00 - Exam General: Reports: Alert, Oriented, Cooperative, No Acute Distress Lungs: Reports: Clear to Auscultation, Normal Respiratory Effort Cardiovascular: Reports: Regular Rate, Regular Rhythm, No Murmurs GI/Abdominal Exam: Soft, Non-Tender, No Organomegaly, No Distention Extremities: Other (Dressing in place right wrist and hand)
--- NOTE | 2018-10-01 13:44 | CONS ---
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 He was being treated with IV antibiotics and now appears to be developing an abscess in that area. This is located on the dorsum of the right wrist area, predominantly on the ulnar aspect. It appears to be partially drained at this point, but the bone certainly needed to be more formally drained. The plan will be to proceed with an exploration with debridement and drainage of this area tomorrow in the operating room. The patient's was present during the discussion. Potential risks including bleeding, infection, possible need to resect tendinous structures in the of joint involvement were all gone over and the patient wishes to proceed. Surgery will be undertaken tomorrow. Walter Prater MD Job #: [id number]
--- NOTE | 2018-10-02 09:15 | OR ---
DATE OF PROCEDURE: 09/26/2018 PREOPERATIVE DIAGNOSIS: Abscess with at least focal skin necrosis of right wrist area. POSTOPERATIVE DIAGNOSIS: Abscess of right wrist area with necrotizing infection involving the right wrist skin and subcutaneous tissue, fascia, and the extensor retinaculum, along with a portion of surface of extensor carpi ulnaris tendon. PROCEDURES: Exploration of right wrist with: 1. Drainage of deep abscess ([id number]). 2. Debridement of skin, subcutaneous tissue, fascia, extensor retinaculum, and portion of extensor carpi ulnaris tendon ([id number]). ANESTHESIA: General. INDICATION FOR PROCEDURE: Please see consultation note dated yesterday. DETAILS OF PROCEDURE: The patient was taken to the operating room, and after general endotracheal anesthesia was induced, the right wrist and surrounding areas were prepped and draped. The overtly necrotic skin over the area of the pocket grinder operator accident was then excised. This contained some obvious foreign material within it, likely small metallic structures from the pocket grinder operator. Below this, there was quite a bit in the way of necrotic tissue, which involved the subcutaneous tissue, some of the fascia, and a portion of the extensor retinaculum. A thin rim of the extensive carpi ulnaris tendon appeared to be somewhat necrotic as well, and that was debrided, although the vast majority of the tendon was left in place and appeared to be viable. At this point, all areas that appeared to be nonviable had been excised and the areas all were satisfactorily drained from the abscess standpoint. Cultures had been obtained, and the wound was then packed with Zyvox-containing gauze and a dressing applied. The patient was taken to the recovery room in satisfactory condition. Walter Prater MD Job #: [id number]
== END 2018-09-29 13:40 | disposition home or self-care (01) | DRG 983 ==
LOC: JP.ED 22:26 → EDBD 22:26 → UNDOADMOB 09-23 00:19 → JP.MS 09-23 00:19 → MERGE 09-23 11:00 → OBSVTOIN 09-23 11:00
PROVIDERS: ADMIT Family Medicine; ATTEND Hospitalist
PROC: 0J9G0ZX Drainage of Right Lower Arm Subcutaneous Tissue and Fascia, Open Approach, Diagnostic (ICD-10-PCS; principal; 2018-09-26)
PROC: 0LB50ZZ Excision of Right Lower Arm and Wrist Tendon, Open Approach (ICD-10-PCS; 2018-09-26)
DX: L03.113 Cellulitis of right upper limb (principal); S60.511A Abrasion of right hand, initial encounter; L02.413 Cutaneous abscess of right upper limb; I12.9 Hypertensive chronic kidney disease with stage 1 through stage 4 chronic kidney disease, or unspecified chronic kidney disease; N18.3 Chronic kidney disease, stage 3 (moderate); I69.8 Sequelae of other cerebrovascular diseases; W31.89XA Contact with other specified machinery, initial encounter; Y93.89 Activity, other specified; Y92.9 Unspecified place or not applicable; R41.82 Altered mental status, unspecified; M79.89 Other specified soft tissue disorders; B95.61 Methicillin susceptible Staphylococcus aureus infection as the cause of diseases classified elsewhere
CPT/HCPCS: 36415 ×2; 80048 ×2; 81001; 82550; 83605; 85025; 85027; 86140; 87040 ×2; 96365; 96367; 99284; A9270 ×3; J0696; J1644 ×2; J2543 ×2; J3370; J3490; J7030 ×3; J7040; J7050 ×4; 80202; 87070; 87075; 87077; 87186; 87205; 88304; 99283; J0330; J1100; J2020; J2405; J2704; J2710; J3010

== ENCOUNTER 2018-10-20 06:31 | Day surgery (SDC) | payer MEDICARE ==
[2018-10-20] MEDS ORDERED: Dextrose 5%-Lactated Ringers 1,000 ML IV SCH (07:00)
[2018-10-20] MEDS ORDERED: Bupivacaine 0.5% 50 ML MDV ONE (07:05)
[2018-10-20] MEDS ORDERED: Lidocaine 1% with EPINEPHrine 1:100,000 50 ML MDV ONE (07:05)
[2018-10-20] MEDS ORDERED: Meropenem 500 MG SDV ONE (07:06)
[2018-10-20] MEDS ORDERED: fentaNYL 100 MCG/2 ML SDV ONE (07:21)
[2018-10-20] MEDS ORDERED: Propofol 200 MG/20 ML SDV ONE (07:21)
[2018-10-20] MEDS ORDERED: Midazolam 1 MG/ML 2 ML SDV ONE (07:21)
--- NOTE | 2018-10-30 15:18 | OR ---
DATE OF PROCEDURE: 10/20/2018 PREOPERATIVE DIAGNOSIS: Exposed extensor carpi ulnaris tendon, right wrist. POSTOPERATIVE DIAGNOSIS: Exposed extensor carpi ulnaris tendon, right wrist. PROCEDURE PERFORMED: Excision of portion of the extensor carpi ulnaris tendon, right wrist. SURGEON: Walter Prater MD SUPERVISOR CLE[employer]ING [employer] ANNEALING: DAISHA Srinivasan. ANESTHESIA: IV sedation. INDICATION FOR PROCEDURE: This is a 73-year-old status post an extensive injury to his right wrist. The wound is being treated as open wound at this point. He does have a small area of exposed tendon, which appeared to be the portion of the extensor carpi ulnaris. To facilitate more adequate healing and granulation tissue formation over this, that area is to be excised. DETAILS OF THE PROCEDURE: The patient was taken to the operating room and placed in a spine position. IV sedation was administered, after which the right wrist and surrounding areas were prepped and draped. This was, at this point, not having much in the way of sensation due to previous stroke, which led to the extensiveness of the injury. The exposed tendon was then sharply excised to the point where there was no tendon remaining visible. At that point, the wound was dressed with a saline-soaked gauze and dressing applied. The patient was taken to the recovery room in satisfactory condition. There were no evident complications. Walter Prater MD /[id number]
== END 2018-10-20 10:08 | disposition other institution (70) ==
LOC: JP.SDS 06:31
PROVIDERS: ATTEND Surgery
DX: S56.591A Other injury of other extensor muscle, fascia and tendon at forearm level, right arm, initial encounter (principal); N18.9 Chronic kidney disease, unspecified
CPT/HCPCS: 25109; 88304; J2250; J2704; J3010; J3490; J7042; J2185

== ENCOUNTER 2018-10-31 08:16 | Inpatient (IN) | payer MEDICARE ==
[~2018-10-31 08:16] MED LIST: Dexamethasone 4 MG/ML SDV ONE; Glycopyrrolate 0.2 MG/ML 5 ML MDV ONE; Mineral Oil 10 ML Bottle ONE; Neostigmine Methylsulfate 1 MG/ML 5 ML Syringe ONE; Ondansetron 4 MG/2 ML SDV ONE; Propofol 200 MG/20 ML SDV ONE; Rocuronium 50 MG/5 ML Vial ONE; Succinylcholine 200 MG/10 ML MDV ONE; fentaNYL 250 MCG/5 ML SDV ONE
[2018-10-31] MEDS: Dextrose 5%-Lactated Ringers 1,000 ML IV SCH ×3 (09:00→23:24)
[2018-10-31] MEDS: ceFAZolin 2 GM in Premix Bag 1 BAG IV ONE ×2 (11:04→12:24)
[2018-10-31] MEDS ORDERED: Acetaminophen/HYDROcodone 325-5 MG Tab PO PRN (11:42)
[2018-10-31] MEDS ORDERED: Ondansetron 4 MG/2 ML SDV IVPUSH PRN (12:00)
[2018-10-31] MEDS: Losartan 50 MG Tab PO SCH (17:13)
[2018-10-31] MEDS: ceFAZolin 2 GM in Premix Bag 1 BAG IV SCH (17:13)
[2018-10-31] MEDS: Hydrochlorothiazide 25 MG Tab PO SCH (17:14)
[2018-10-31] MEDS ORDERED: Acetaminophen 325 MG Tab PO PRN (20:58)
[2018-10-31] MEDS ORDERED: Calcium Carbonate 500 MG Tab.Chew PO PRN (23:25)
[2018-11-01] MEDS: ceFAZolin 2 GM in Premix Bag 1 BAG IV SCH ×2 (00:06→08:21)
--- NOTE | 2018-11-01 07:38 | PCM.DCSUM1 ---
Discharge Summary - Hospital Course Free Text/Narrative:: Admission Diagnosis: 1. Abscess of right forearm 2. Cellulitis of right forearm 3. Hand abrasion, infected 4. HTN 5. CVA 6. CKD stage 3 Discharge Diagnosis: Skin graft split thickness of right forearm for an infected hand abrasion. Date of surgery: 10/31/18. Surgeon: Walter Prater MD. HPI Initial Comments: History: Jose Angel De La Vega is a 73-year-old male with an infected hand abrasion requiring a skin graft. After preoperative evaluation and discussion of possible risks and possible complications, he wished to proceed with surgical procedure. Hospital Course: Ceferino had his surgery on 10/31/18. He had no evident operative complications. On postoperative day #1, he required no pain medication. He had some acid reflux but this was controlled with TUMS. His urine output, oral intake, and activity were all satisfactory. On 11/01/18, he was able to be discharged to home without any complications. - Discharge Data Discharge Date: 11/01/18 Discharge Disposition: Home, Self-Care 01 Condition: Good - Patient Instructions Diet: Usual Diet as Tolerated Activity: As Tolerated Showering/Bathing: No Showering (to ensure all dressings stay dry.) Wound/Incision Care: Do NOT Change Dressing (and keep dry.) Notify Provider of: Fever, Increased Pain, Swelling and Redness, Nausea and/or Vomiting - Discharge Plan Home Medications: Home Meds Tamsulosin HCl [Flomax] 0.4 mg PO DAILY 09/22/18 [History] Losartan/Hydrochlorothiazide [Losartan-HCTZ 100-25 MG] 1 each PO DAILY 10/19/18 [History] Patient Handouts: Skin Grafting, Adult, Care After, Preventing Constipation After Surgery Referrals: Walter Prater MD [Physician] - 11/06/18 9:00 am - Discharge Summary/Plan Comment DC Time >30 min.: Yes - Patient Data Vitals - Most Recent: Last Vital Signs Temp 36.8 C 11/01/18 03:00 Pulse 67 11/01/18 03:00 Resp 15 11/01/18 03:00 BP 113/74 11/01/18 03:00 Pulse Ox 95 11/01/18 03:00 Weight - Most Recent: 90.718 kg I&O - Last 24 hours: Intake & Output 10/31/18 11/01/18 11/01/18 22:59 06:59 14:59 Intake Total 630 1936 Output Total 300 550 Balance 330 1386 Lab Results - Last 24 hrs: Laboratory Results - last 24 hr 10/31/18 10/31/18 Range/Units 08:45 08:45 WBC 13.0 H (4.5-11.0) K/uL RBC 5.39 (4.30-5.90) M/uL Hgb 15.3 H (12.0-15.0) g/dL Hct 46.5 (40.0-54.0) % MCV 86 (80-98) fL MCH 28 (27-31) pg MCHC 33 (32-36) % Plt Count 258 (150-400) K/uL Sodium 143 (140-148) mmol/L Potassium 3.9 (3.6-5.2) mmol/L Chloride 104 (100-108) mmol/L Carbon Dioxide 28 (21-32) mmol/L Anion Gap 14.9 H (5.0-14.0) mmol/L BUN 31 H D (7-18) mg/dL Creatinine 1.6 H (0.8-1.3) mg/dL Est Cr Clr Drug Dosing 49.23 mL/min Estimated GFR (MDRD) 43 L (>60) Glucose 97 (74-106) mg/dL Calcium 9.2 (8.5-10.1) mg/dL Total Bilirubin 0.4 (0.2-1.0) mg/dL AST 22 (15-37) U/L ALT 29 (12-78) U/L Alkaline Phosphatase 94 (46-116) U/L Total Protein 7.7 (6.4-8.2) g/dL Albumin 3.2 L (3.4-5.0) g/dL Globulin 4.5 H (2.3-3.5) g/dL Albumin/Globulin Ratio 0.7 L (1.2-2.2) Med Orders - Current: Current Medications Acetaminophen (Tylenol) 650 mg PO Q4H PRN PRN Reason: Pain (mild 1-3) Last Admin: 10/31/18 21:11 Dose: 650 mg Hydrocodone Bitart/Acetaminophen (Oxly 325-5 Mg) 1 tab PO Q3H PRN PRN Reason: PAIN Calcium Carbonate/Glycine (Tums) 1,000 mg PO Q2H PRN PRN Reason: Indigestion Last Admin: 11/01/18 00:06 Dose: 1,000 mg Hydrochlorothiazide (Hydrochlorothiazide) 25 mg PO DAILY [facility] Last Admin: 10/31/18 17:14 Dose: 25 mg Dextrose/Lactated Ringer's (Dextrose 5%-Lactated Ringers) 1,000 mls @ 100 mls/ hr IV ASDIRECTED [facility] Last Admin: 10/31/18 23:24 Dose: 100 mls/hr Cefazolin Sodium/Dextrose 2 gm (/ Premix) 50 mls @ 100 mls/hr IV Q8H [facility] Stop: 11/01/18 09:29 Last Admin: 11/01/18 00:06 Dose: 100 mls/hr Losartan Potassium (Cozaar) 100 mg PO DAILY [facility] Last Admin: 10/31/18 17:13 Dose: 100 mg Ondansetron HCl (Zofran) 4 mg IVPUSH Q4H PRN PRN Reason: Nausea/Vomiting Tamsulosin HCl (Flomax) 0.4 mg PO DAILY [facility] Discontinued Medications Dexamethasone (Dexamethasone) Confirm Administered Dose 4 mg .ROUTE .STK-MED ONE Stop: 10/31/18 07:18 Fentanyl (Sublimaze) Confirm Administered Dose 250 mcg .ROUTE .STK-MED ONE Stop: 10/31/18 07:19 Glycopyrrolate (Robinul) Confirm Administered Dose 1 mg .ROUTE .STK-MED ONE Stop: 10/31/18 07:18 Hydrochlorothiazide (Hydrochlorothiazide) 25 mg PO DAILY [facility] Cefazolin Sodium/Dextrose 2 gm (/ Premix) 50 mls @ 100 mls/hr IV ONETIME ONE Stop: 10/31/18 09:29 Last Admin: 10/31/18 12:24 Dose: Not Given Losartan Potassium (Cozaar) 100 mg PO DAILY [facility] Mineral Oil (Muri-Lube) Confirm Administered Dose 20 ml .ROUTE .STK-MED ONE Stop: 10/31/18 06:55 Last Admin: 10/31/18 11:11 Dose: 20 ml Neostigmine Methylsulfate (Neostigmine) Confirm Administered Dose 5 mg .ROUTE .STK-MED ONE Stop: 10/31/18 07:18 Ondansetron HCl (Zofran) Confirm Administered Dose 4 mg .ROUTE .STK-MED ONE Stop: 10/31/18 07:18 Propofol (Diprivan 20 Ml) Confirm Administered Dose 200 mg .ROUTE .STK-MED ONE Stop: 10/31/18 07:18 Rocuronium [place] (Zemuron) Confirm Administered Dose 50 mg .ROUTE .STK-MED ONE Stop: 10/31/18 07:18 Succinylcholine Chloride (Quelicin) Confirm Administered Dose 200 mg .ROUTE .STK -MED ONE Stop: 10/31/18 07:18 - Exam Physical Findings Comments:: General: Jose Angel De La Vega is a 73-year-old male, height is 6 feet 2 inches, weight is 200 pounds. HEENT: Negative. Neck: Supple. Heart: Regular rate and rhythm. Lungs: Clear. Abdomen: Normal bowel sounds. Extremities: Dressing was left intact on the forearm without any signs of infection. Bulky dressing was removed from upper right thigh. The Xeroform dressing and sudheer was left in place on the upper right thigh. No peripheral edema noted. Disposition: Discharged to home. Condition: Stable and improving. Follow-Up Appointment: Dr. Moi MD, on 11/06/18 at 9:00 AM. Medications: He is to resume his home medications: 1. Losartan/Hydrochlorothiazide 100-25 mg 1 tab oral daily. 2. Tamsulosin [Flomax] 0.4 mg oral daily. Diet: Usual diet as tolerated. Activity: Usual activity as tolerated. Dressing: Keep dressing on right arm and upper right thigh dry and intact until the follow -up appointment. Discharge Instructions: Notify provider if any fever, nausea, vomiting, increased swelling or redness. Keep site covered and dry.
[2018-11-01] MEDS: Hydrochlorothiazide 25 MG Tab PO SCH (08:45)
[2018-11-01] MEDS: Losartan 50 MG Tab PO SCH (08:45)
[2018-11-01] MEDS ORDERED: Tamsulosin 0.4 MG Cap.ER PO SCH (09:00)
[2018-11-01] MEDS ORDERED: Hydrochlorothiazide 25 MG Tab PO SCH (09:00)
[2018-11-01] MEDS ORDERED: Losartan 50 MG Tab PO SCH (09:00)
--- NOTE | 2018-11-02 13:28 | OR ---
DATE OF PROCEDURE: 10/31/2018 PREOPERATIVE DIAGNOSIS: Open wound, right wrist. POSTOPERATIVE DIAGNOSIS: Open wound, right wrist. OPERATIVE PROCEDURE: Split-thickness skin graft to open wound, right wrist ([id number]). ANESTHESIA: General. 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 INDICATION FOR PROCEDURE: This is a 73-year-old, who has lack of sensation on his right arm and right leg. He developed a deep wound on his right wrist. This has now granulated in but clearly will not reepithelialize, and patient will undergo a skin graft at this time. Potential risks including bleeding and infection, possibility the graft may not take were all reviewed with the patient and his , and they wished to proceed. DETAILS OF PROCEDURE: The patient was taken to the operating room, and after general endotracheal anesthesia was induced, the right wrist, as well as the anterior aspect of the right thigh, were prepped and draped. Initially, the area on the wrist wound was irrigated with removal of a little bit of fibrinous exudate, and overall there appeared to be a satisfactorily granulating bed at this point. This was measured at 4 x 5 cm. Given this, the area on the thigh was marked out, and using the electric dermatome, a patch of skin measuring 4 x 5 cm was harvested. The depth of this was 0.014 inches or 0.356 mm in depth. Satisfactory graft was then harvested. This was then meshed and then laid over the granulating bed. The edges were trimmed and the edges were then stapled circumferentially with skin sudheer. A bolster dressing using 3-0 Prolene stitch was then placed as well with multiple stitches around the circumference of the lesion, holding the gauze in place. Xeroform gauze had been placed over the skin graft at this point and then was also placed over the donor site. Donor site was also stapled in terms of Xeroform gauze, holding it in place, and dressing applied to both wound sites and patient was taken to the recovery room in satisfactory condition. There were no evident complications. Walter Prater MD /[id number]
== END 2018-11-01 09:35 | disposition home or self-care (01) | DRG 577 ==
LOC: JP.SDSSCHI 08:16 → JP.SDS 08:16 → EDSTATUS 09:30 → JP.MS 10:45
PROVIDERS: ADMIT Surgery; ATTEND Surgery
PROC: 0HBHXZZ Excision of Right Upper Leg Skin, External Approach (ICD-10-PCS; principal; 2018-10-31)
PROC: 0HRDX74 Replacement of Right Lower Arm Skin with Autologous Tissue Substitute, Partial Thickness, External Approach (ICD-10-PCS; principal; 2018-10-31)
DX: S61.501A Unspecified open wound of right wrist, initial encounter (principal); L02.413 Cutaneous abscess of right upper limb; L03.113 Cellulitis of right upper limb; W31.1XXA Contact with metalworking machines, initial encounter; I12.9 Hypertensive chronic kidney disease with stage 1 through stage 4 chronic kidney disease, or unspecified chronic kidney disease; N18.3 Chronic kidney disease, stage 3 (moderate); K21.9 Gastro-esophageal reflux disease without esophagitis; E78.00 Pure hypercholesterolemia, unspecified; Z86.73 Personal history of transient ischemic attack (TIA), and cerebral infarction without residual deficits; Z79.899 Other long term (current) drug therapy; Z87.891 Personal history of nicotine dependence
CPT/HCPCS: 36415; 80053; 85027; 94762; A9270-GY; J0330; J0690; J1100; J2405; J2704; J2710; J3010; J3490; J7042

== ENCOUNTER 2023-07-17 14:33 | Emergency (ER) | payer MEDICARE ==
[2023-07-17 16:34] LABS: BASOPHILS ABSOLUTE AUTO 0.06 K/uL (0.00-0.10); BASOPHILS PERCENT AUTO 0.4 % (0.1-1.3); EOSINOPHILS PERCENT AUTO 0.1 % (0.0-5.4); HEMATOCRIT 36.4 % (38.4-49.7); HEMOGLOBIN 12.2 g/dL (12.9-16.9); IMMATURE GRAN ABSOLUTE AUTO 0.07 K/uL (0.00-0.23); IMMATURE GRAN PERCENT AUTO 0.5 % (0.0-0.7); LYMPHOCYTES ABSOLUTE AUTO 1.16 K/uL (0.8-3.3); LYMPHOCYTES PERCENT AUTO 7.7 % (11.4-47.7); MEAN CORPUSCULAR HGB CONC 33.5 g/dL (31.6-35.5); MEAN CORPUSCULAR VOLUME 86.5 fL (81.4-99.0); MONOCYTES ABSOLUTE AUTO 1.33 K/uL (0.20-0.90); MONOCYTES PERCENT AUTO 8.8 % (3.3-12.6); NEUTROPHILS PERCENT AUTO 82.5 % (40.0-78.1); PLATELET COUNT,PLT 121 K/uL (130-375); RED BLOOD CELL COUNT 4.21 M/uL (4.14-5.76)
[2023-07-17 16:35] LABS: EOSINOPHILS ABSOLUTE AUTO 0.01 K/uL (0.00-0.40)
[2023-07-17 16:47] LABS: APPEARANCE,URINE CLOUDY (CLEAR); BILIRUBIN,URINE SMALL (NEGATIVE); COLOR,URINE BROWN (YELLOW); GLUCOSE,URINE NEGATIVE (NEGATIVE); KETONES,URINE NEGATIVE (NEGATIVE); LEUKOCYTE ESTERASE,URINE NEGATIVE (NEGATIVE); NITRITE,URINE NEGATIVE (NEGATIVE); OCCULT BLOOD,URINE LARGE (NEGATIVE); PROTEIN,URINE >=300 mg/dL (NEGATIVE); UROBILINOGEN,URINE 0.2 EU/dL (0.2-1.0)
[2023-07-17 16:52] LABS: AMORPHOUS SEDIMENT,URINE NOT SEEN; BACTERIA,URINE MANY; EPITHELIAL CELLS,URINE NOT SEEN; MUCUS,URINE NOT SEEN; RBC,URINE SEMI-PACKED (0-5); WBC,URINE 0-5 (0-5)
[2023-07-17 16:58] LABS: ANION GAP 8.1 mmol/L (5.0-14.0); CALCIUM 8.9 mg/dL (8.5-10.1); CREATININE 2.1 mg/dL (0.8-1.3); EST CRCL DRUG DOSING (CG) 34.79 mL/min
[2023-07-17 18:00] LABS: BILIRUBIN DIRECT 0.19 mg/dL (0.0-0.2); BILIRUBIN INDIRECT 0.71; BILIRUBIN TOTAL 0.9 mg/dL (0.2-1.0)
== END 2023-07-17 20:40 | disposition home or self-care (01) ==
LOC: JP.ED 14:33
DX: E86.0 Dehydration (principal); R53.1 Weakness; R31.0 Gross hematuria; R10.819 Abdominal tenderness, unspecified site; I10 Essential (primary) hypertension; Z79.899 Other long term (current) drug therapy
CPT/HCPCS: 36415; 70450; 71250; 74176; 80048; 80076; 80307; 81001; 83605; 85025; 99285